=== PATIENT | female | born 1970 | race African-American/Black ===

== ENCOUNTER 2016-09-11 08:12 | Inpatient (IN) | payer OTHER ==
[~2016-09-11] VITALS: Ht 175.3 cm; Wt 74.8 kg
[2016-09-11] MEDS ORDERED: IV NS 0.9% 1,000 ML ONE (08:40)
[2016-09-11] MEDS ORDERED: IV SET PRIMARY PUMP SET 1 EA INFUS.SET MC ONE ×2 (08:40→15:11)
[2016-09-11] MEDS ORDERED: ACETAMINOPHEN ES 500 MG TABLET ONE (08:40)
[2016-09-11] MEDS ORDERED: IV NS 0.9% 1,000 ML BAG IV ONE (09:00)
[2016-09-11] MEDS ORDERED: ACETAMINOPHEN ES 500 MG TABLET PO ONE (09:00)
[2016-09-11 09:26] LABS: CALCIUM, SERUM 7.9 mg/dL (8.5-10.1); CREATININE 0.9 mg/dL (0.6-1.3); POTASSIUM 3.7 mmol/L (3.5-5.1)
[2016-09-11 09:35] LABS: INR 0.95 (0.87-1.13); PROTHROMBIN TIME 10.3 SECS (9.5-12.7)
[2016-09-11 10:04] LABS: BASOPHILS # (AUTO) 0.3 /CMM (0.0-0.2); BASOPHILS % (AUTO) 4.1 % (0.0-2.0); DIFF TOTAL % 100 %; EOSINOPHILS # (AUTO) 0.1 /CMM (0.0-0.7); EOSINOPHILS % (AUTO) 1.6 % (0.0-6.0); LYMPHOCYTES # (AUTO) 2.1 /CMM (0.8-4.8); LYMPHOCYTES % (AUTO) 26.1 % (20.0-44.0); MEAN CORPUSCULAR HEMOGLOBIN 27 PG (26.0-33.0); MEAN CORPUSCULAR HGB CONC 32 g/dl (31.0-36.0); MEAN CORPUSCULAR VOLUME 86 fL (82-100); MONOCYTES # (AUTO) 0.8 /CMM (0.1-1.30); MONOCYTES % (AUTO) 9.4 % (2.0-12.0); NEUTROPHILS # (AUTO) 4.7 /CMM (1.8-8.9); NEUTROPHILS % (AUTO) 58.8 % (43.0-81.0); PLATELET COUNT (AUTO) 459 /CMM (150-450); RED BLOOD CELL COUNT(AUTO) 2.02 MIL/uL (4.0-5.2)
[2016-09-11 10:14] LABS: HEMATOCRIT 17 % (33-45); HEMOGLOBIN 5.5 g/dL (11.5-14.8)
[2016-09-11] MEDS ORDERED: BIOT10004 PO (10:30)
[2016-09-11] MEDS ORDERED: METOCLOPRAMIDE HCL 10 MG/2 ML VIAL IV ONE (10:30)
[2016-09-11] MEDS ORDERED: diphenhydrAMINE HCL 50 MG/ML VIAL IV ONE (10:30)
[2016-09-11] MEDS ORDERED: MULT-24 PO (10:30)
[2016-09-11] MEDS ORDERED: ASCO500T9 PO (10:30)
[2016-09-11] MEDS ORDERED: diphenhydrAMINE HCL 50 MG/ML VIAL ONE (10:37)
[2016-09-11] MEDS ORDERED: METOCLOPRAMIDE HCL 10 MG/2 ML VIAL ONE (10:38)
[2016-09-11 11:01] LABS: BAND % (MANUAL) 1 % (0.0-5.0); LYMPHOCYTES % (MANUAL) 37 % (16-48); PLATELET ESTIMATE INCREASED
[2016-09-11 11:02] LABS: ANISOCYTOSIS 1+; HYPOCHROMASIA 1+; POLYCHROMASIA 1+
[2016-09-11] MEDS ORDERED: IV NS 0.9% 250 ML IV ONE ×2 (12:53→15:12)
[2016-09-11] MEDS ORDERED: BLOOD IV SET 1 EA INFUS.SET MC ONE ×2 (12:53→15:12)
[2016-09-11] MEDS ORDERED: Z GUARD REMEDY 2 OZ OINT TP PRN (14:00)
[2016-09-11] MEDS ORDERED: ZOLPIDEM TARTRATE 5 MG TABLET PO PRN (14:00)
[2016-09-11] MEDS ORDERED: MAG HYDROX/AL HYDROX/SIMETH 30 ML UDC PO PRN (14:00)
[2016-09-11] MEDS ORDERED: ONDANSETRON HCL/PF 4 MG/2 ML VIAL IVP PRN (14:00)
[2016-09-11] MEDS ORDERED: MAGNESIUM HYDROXIDE 30 ML UDC PO PRN (14:00)
[2016-09-11 14:45] VITALS: BP 137/76
[2016-09-11] MEDS: IV NS 0.9% 1,000 ML IV PRN (15:19)
[2016-09-11] MEDS: HYDROCODONE/APAP 5/325MG 1 EACH TABLET PO PRN (15:19)
[2016-09-11 15:48] VITALS: BP 134/82
[2016-09-11 16:10] VITALS: BP_SYST 126; BP_SYST 127; BP_DIAS 71
[2016-09-11 17:21] VITALS: BP 126/70
[2016-09-11 17:53] VITALS: BP 127/74
[2016-09-11 20:00] VITALS: BP 134/54
[2016-09-12] VITALS (9 sets, daily range): BP systolic 129–157; BP diastolic 71–90
[2016-09-12] MEDS: HYDROCODONE/APAP 5/325MG 1 EACH TABLET PO PRN ×2 (00:24→11:25)
[2016-09-12 07:29] LABS: BASOPHILS % (AUTO) 0.7 % (0.0-2.0); DIFF TOTAL % 100 %; EOSINOPHILS # (AUTO) 0.2 /CMM (0.0-0.7); EOSINOPHILS % (AUTO) 3.4 % (0.0-6.0); LYMPHOCYTES # (AUTO) 1.6 /CMM (0.8-4.8); LYMPHOCYTES % (AUTO) 32.3 % (20.0-44.0); MEAN CORPUSCULAR HEMOGLOBIN 28 PG (26.0-33.0); MEAN CORPUSCULAR HGB CONC 33 g/dl (31.0-36.0); MEAN CORPUSCULAR VOLUME 85 fL (82-100); MONOCYTES # (AUTO) 0.5 /CMM (0.1-1.30); MONOCYTES % (AUTO) 9.4 % (2.0-12.0); NEUTROPHILS # (AUTO) 2.7 /CMM (1.8-8.9); NEUTROPHILS % (AUTO) 54.2 % (43.0-81.0); PLATELET COUNT (AUTO) 376 /CMM (150-450); WHITE BLOOD COUNT (AUTO) 5.1 K/uL (4.3-11.0)
[2016-09-12 07:37] LABS: HEMATOCRIT 19 % (33-45); HEMOGLOBIN 6.4 g/dL (11.5-14.8)
[2016-09-12 07:41] LABS: CALCIUM, SERUM 7.8 mg/dL (8.5-10.1); CREATININE 0.8 mg/dL (0.6-1.3); PHOSPHORUS 3.5 mg/dL (2.5-4.9); POTASSIUM 3.5 mmol/L (3.5-5.1)
[2016-09-12] MEDS: PANTOPRAZOLE 40 MG TABLET.DR PO SCH (09:05)
[2016-09-12 10:03] LABS: ANISOCYTOSIS 2+; EOSINOPHILS % (MANUAL) 2 % (0-4); LYMPHOCYTES % (MANUAL) 33 % (16-48); PLATELET ESTIMATE ADEQUATE
[2016-09-12] MEDS ORDERED: IV NS 0.9% 250 ML IV ONE (10:48)
[2016-09-12] MEDS ORDERED: BLOOD IV SET 1 EA INFUS.SET MC ONE (10:49)
[2016-09-13] VITALS (12 sets, daily range): BP systolic 121–155; BP diastolic 52–95
[2016-09-13] MEDS: IV NS 0.9% 1,000 ML IV PRN (02:11)
[2016-09-13] MEDS: ACETAMINOPHEN 325 MG TABLET PO PRN ×2 (04:21→08:59)
[2016-09-13 07:23] LABS: BASOPHILS % (AUTO) 0.3 % (0.0-2.0); DIFF TOTAL % 100 %; EOSINOPHILS # (AUTO) 0.2 /CMM (0.0-0.7); HEMATOCRIT 27 % (33-45); HEMOGLOBIN 8.9 g/dL (11.5-14.8); LYMPHOCYTES # (AUTO) 1.3 /CMM (0.8-4.8); LYMPHOCYTES % (AUTO) 20.3 % (20.0-44.0); MEAN CORPUSCULAR HEMOGLOBIN 28 PG (26.0-33.0); MEAN CORPUSCULAR HGB CONC 33 g/dl (31.0-36.0); MEAN CORPUSCULAR VOLUME 85 fL (82-100); MONOCYTES # (AUTO) 0.5 /CMM (0.1-1.30); MONOCYTES % (AUTO) 7.6 % (2.0-12.0); NEUTROPHILS # (AUTO) 4.4 /CMM (1.8-8.9); NEUTROPHILS % (AUTO) 68.8 % (43.0-81.0); PLATELET COUNT (AUTO) 382 /CMM (150-450); WHITE BLOOD COUNT (AUTO) 6.4 K/uL (4.3-11.0)
[2016-09-13] MEDS: PANTOPRAZOLE 40 MG TABLET.DR PO SCH (07:47)
[2016-09-13] MEDS ORDERED: diphenhydrAMINE HCL ELIX 25 MG/10 ML UDC PO PRN (14:30)
[2016-09-13] MEDS ORDERED: BLOOD IV SET 1 EA INFUS.SET MC ONE ×2 (17:31→20:02)
[2016-09-13] MEDS ORDERED: IV NS 0.9% 250 ML IV ONE (17:32)
[2016-09-13] MEDS ORDERED: diphenhydrAMINE HCL 25 MG CAPSULE ONE (19:38)
[2016-09-13] MEDS: HYDROCODONE/APAP 5/325MG 1 EACH TABLET PO PRN (23:04)
[2016-09-14 00:10] VITALS: BP 137/70
[2016-09-14 01:10] VITALS: BP 149/82
[2016-09-14 01:55] VITALS: BP 137/77
[2016-09-14 04:00] VITALS: BP 167/81
[2016-09-14 06:19] VITALS: BP 167/87
[2016-09-14 08:00] VITALS: BP 141/87
[2016-09-14 09:17] LABS: BASOPHILS % (AUTO) 0.1 % (0.0-2.0); DIFF TOTAL % 100 %; EOSINOPHILS # (AUTO) 0.2 /CMM (0.0-0.7); EOSINOPHILS % (AUTO) 2.7 % (0.0-6.0); HEMATOCRIT 35 % (33-45); HEMOGLOBIN 11.5 g/dL (11.5-14.8); LYMPHOCYTES # (AUTO) 1.3 /CMM (0.8-4.8); LYMPHOCYTES % (AUTO) 18.6 % (20.0-44.0); MEAN CORPUSCULAR HEMOGLOBIN 28 PG (26.0-33.0); MEAN CORPUSCULAR HGB CONC 33 g/dl (31.0-36.0); MEAN CORPUSCULAR VOLUME 85 fL (82-100); MONOCYTES # (AUTO) 0.4 /CMM (0.1-1.30); MONOCYTES % (AUTO) 5.7 % (2.0-12.0); NEUTROPHILS # (AUTO) 5.1 /CMM (1.8-8.9); NEUTROPHILS % (AUTO) 72.9 % (43.0-81.0); PLATELET COUNT (AUTO) 400 /CMM (150-450)
[2016-09-14 09:36] LABS: CALCIUM, SERUM 8.3 mg/dL (8.5-10.1); CREATININE 0.9 mg/dL (0.6-1.3); POTASSIUM 3.8 mmol/L (3.5-5.1)
[2016-09-14] MEDS: PANTOPRAZOLE 40 MG TABLET.DR PO SCH (09:44)
== END 2016-09-14 17:00 | disposition home or self-care (01) | DRG 532 ==
LOC: ER 08:13 → MEDSG1 13:52
PROVIDERS: ADMIT Internal Medicine; ATTEND Internal Medicine
PROC: 30233N1 Transfusion of Nonautologous Red Blood Cells into Peripheral Vein, Percutaneous Approach (ICD-10-PCS; principal; 2016-09-11)
DX: N92.0 Excessive and frequent menstruation with regular cycle (principal); D62 Acute posthemorrhagic anemia; I10 Essential (primary) hypertension; Z86.73 Personal history of transient ischemic attack (TIA), and cerebral infarction without residual deficits; M72.2 Plantar fascial fibromatosis
CPT/HCPCS: 36415; 80048-TC; 80061-TC; 83735-TC; 84100-TC; 84703-TC; 85025-TC; 85730-TC; 86850-TC; 86921-TC; 87081-TC; A4606; J1200; J2765; J7030; J7050; P9016-BL; Q0163; Z7610

== ENCOUNTER 2016-10-04 19:43 | Inpatient (IN) | payer OTHER ==
[~2016-10-04] VITALS: Ht 175.3 cm; Wt 72.6 kg
[~2016-10-04 19:43] MED LIST: ASCO500T9 PO; BIOT10004 PO; MULT-24 PO
[2016-10-04] MEDS ORDERED: IV NS 0.9% 500 ML BAG IV ONE (20:30)
[2016-10-04] MEDS ORDERED: IV SET PRIMARY 1 EA INFUS.SET MC ONE (20:30)
[2016-10-04] MEDS ORDERED: IV NS 0.9% 500 ML IV ONE (20:30)
[2016-10-04 20:55] LABS: BASOPHILS % (AUTO) 0.3 % (0.0-2.0); DIFF TOTAL % 100 %; EOSINOPHILS % (AUTO) 0.4 % (0.0-6.0); LYMPHOCYTES # (AUTO) 1.4 /CMM (0.8-4.8); LYMPHOCYTES % (AUTO) 11.5 % (20.0-44.0); MEAN CORPUSCULAR HEMOGLOBIN 28 PG (26.0-33.0); MEAN CORPUSCULAR HGB CONC 33 g/dl (31.0-36.0); MEAN CORPUSCULAR VOLUME 86 fL (82-100); MONOCYTES # (AUTO) 0.6 /CMM (0.1-1.30); MONOCYTES % (AUTO) 4.5 % (2.0-12.0); NEUTROPHILS # (AUTO) 10.2 /CMM (1.8-8.9); NEUTROPHILS % (AUTO) 83.3 % (43.0-81.0); PLATELET COUNT (AUTO) 303 /CMM (150-450); RED BLOOD CELL COUNT(AUTO) 2.22 MIL/uL (4.0-5.2); WHITE BLOOD COUNT (AUTO) 12.2 K/uL (4.3-11.0)
[2016-10-04 20:58] LABS: HEMOGLOBIN 6.3 g/dL (11.5-14.8)
[2016-10-04 20:59] LABS: HEMATOCRIT 19 % (33-45)
[2016-10-04 21:12] LABS: CALCIUM, SERUM 8.6 mg/dL (8.5-10.1); POTASSIUM 3.8 mmol/L (3.5-5.1)
[2016-10-04 21:50] LABS: ANISOCYTOSIS 1+; BAND % (MANUAL) 1 % (0.0-5.0); LYMPHOCYTES % (MANUAL) 16 % (16-48); MICROCYTOSIS 1+; PLATELET ESTIMATE ADEQU
[2016-10-04] MEDS ORDERED: ONDANSETRON HCL/PF 4 MG/2 ML VIAL IVP ONE (22:30)
[2016-10-04] MEDS ORDERED: MORPHINE SULFATE INJ 2 MG/ML DISP.SYRIN IV ONE (22:30)
[2016-10-04] MEDS ORDERED: MAGNESIUM HYDROXIDE 30 ML UDC PO PRN (23:00)
[2016-10-04] MEDS ORDERED: ZOLPIDEM TARTRATE 5 MG TABLET PO PRN (23:00)
[2016-10-04] MEDS ORDERED: MAG HYDROX/AL HYDROX/SIMETH 30 ML UDC PO PRN (23:00)
[2016-10-04] MEDS ORDERED: Z GUARD REMEDY 2 OZ OINT TP PRN (23:00)
[2016-10-04] MEDS ORDERED: ONDANSETRON HCL/PF 4 MG/2 ML VIAL IVP PRN (23:00)
[2016-10-04] MEDS ORDERED: ACETAMINOPHEN 325 MG TABLET PO PRN (23:00)
[2016-10-04] MEDS ORDERED: BLOOD IV SET 1 EA INFUS.SET MC ONE (23:27)
[2016-10-04] MEDS ORDERED: IV NS 0.9% 250 ML IV ONE (23:28)
[2016-10-04 23:30] VITALS: BP 122/74
[2016-10-04 23:45] VITALS: BP 122/74
[2016-10-05] VITALS (25 sets, daily range): BP systolic 102–158; BP diastolic 50–93
[2016-10-05 07:52] LABS: BASOPHILS % (AUTO) 0.4 % (0.0-2.0); DIFF TOTAL % 100 %; EOSINOPHILS # (AUTO) 0.2 /CMM (0.0-0.7); EOSINOPHILS % (AUTO) 2.1 % (0.0-6.0); HEMATOCRIT 22 % (33-45); HEMOGLOBIN 7.1 g/dL (11.5-14.8); LYMPHOCYTES # (AUTO) 1.5 /CMM (0.8-4.8); LYMPHOCYTES % (AUTO) 18.7 % (20.0-44.0); MEAN CORPUSCULAR HEMOGLOBIN 28 PG (26.0-33.0); MEAN CORPUSCULAR HGB CONC 33 g/dl (31.0-36.0); MEAN CORPUSCULAR VOLUME 85 fL (82-100); MONOCYTES # (AUTO) 0.6 /CMM (0.1-1.30); MONOCYTES % (AUTO) 7.9 % (2.0-12.0); NEUTROPHILS # (AUTO) 5.8 /CMM (1.8-8.9); NEUTROPHILS % (AUTO) 70.9 % (43.0-81.0); PLATELET COUNT (AUTO) 241 /CMM (150-450); RED BLOOD CELL COUNT(AUTO) 2.55 MIL/uL (4.0-5.2); WHITE BLOOD COUNT (AUTO) 8.1 K/uL (4.3-11.0)
[2016-10-05 08:17] LABS: CALCIUM, SERUM 7.7 mg/dL (8.5-10.1); CREATININE 0.8 mg/dL (0.6-1.3); PHOSPHORUS 3.1 mg/dL (2.5-4.9); POTASSIUM 3.9 mmol/L (3.5-5.1)
[2016-10-05] MEDS: MULTIVITAMINS,THERAPEUTIC 1 UDTAB TABLET PO SCH (08:52)
[2016-10-05] MEDS: ASCORBIC ACID 500 MG TABLET PO SCH (08:52)
[2016-10-05 08:57] LABS: BAND % (MANUAL) 1 % (0.0-5.0); EOSINOPHILS % (MANUAL) 5 % (0-4); LYMPHOCYTES % (MANUAL) 14 % (16-48)
[2016-10-05 08:58] LABS: ANISOCYTOSIS 1+; PLATELET ESTIMATE ADEQUATE
[2016-10-05] MEDS ORDERED: Medication Not On Formulary EA (Biotin 1,000 MCG) PO SCH (09:00)
[2016-10-05] MEDS: HYDROCODONE/APAP 5/325MG 1 EACH TABLET PO PRN ×2 (10:02→21:01)
[2016-10-05] MEDS ORDERED: IV SET PRIMARY PUMP SET 1 EA INFUS.SET MC ONE (13:06)
[2016-10-05] MEDS: IV NS 0.9% 1,000 ML IV PRN (13:11)
[2016-10-05] MEDS ORDERED: IV NS 0.9% 250 ML IV ONE ×2 (14:54→19:38)
[2016-10-05] MEDS ORDERED: BLOOD IV SET 1 EA INFUS.SET MC ONE ×2 (14:59→19:38)
[2016-10-05] MEDS: DOCUSATE SODIUM 250 MG CAPSULE PO SCH (16:12)
[2016-10-05] MEDS: ATORVASTATIN 10 MG TABLET PO SCH ×2 (20:57→22:00)
[2016-10-06] VITALS (8 sets, daily range): BP systolic 117–151; BP diastolic 66–86
[2016-10-06] MEDS: IV NS 0.9% 1,000 ML IV PRN (07:11)
[2016-10-06 08:19] LABS: BASOPHILS % (AUTO) 0.3 % (0.0-2.0); DIFF TOTAL % 100 %; EOSINOPHILS # (AUTO) 0.1 /CMM (0.0-0.7); EOSINOPHILS % (AUTO) 2.1 % (0.0-6.0); HEMATOCRIT 27 % (33-45); HEMOGLOBIN 8.7 g/dL (11.5-14.8); LYMPHOCYTES # (AUTO) 1.8 /CMM (0.8-4.8); LYMPHOCYTES % (AUTO) 25.4 % (20.0-44.0); MEAN CORPUSCULAR HEMOGLOBIN 28 PG (26.0-33.0); MEAN CORPUSCULAR HGB CONC 33 g/dl (31.0-36.0); MEAN CORPUSCULAR VOLUME 86 fL (82-100); MONOCYTES # (AUTO) 0.5 /CMM (0.1-1.30); MONOCYTES % (AUTO) 6.9 % (2.0-12.0); NEUTROPHILS # (AUTO) 4.6 /CMM (1.8-8.9); NEUTROPHILS % (AUTO) 65.3 % (43.0-81.0); PLATELET COUNT (AUTO) 251 /CMM (150-450); RED BLOOD CELL COUNT(AUTO) 3.06 MIL/uL (4.0-5.2); WHITE BLOOD COUNT (AUTO) 7.1 K/uL (4.3-11.0)
[2016-10-06] MEDS: ASCORBIC ACID 500 MG TABLET PO SCH (08:24)
[2016-10-06] MEDS: MULTIVITAMINS,THERAPEUTIC 1 UDTAB TABLET PO SCH (08:24)
[2016-10-06] MEDS: DOCUSATE SODIUM 250 MG CAPSULE PO SCH ×2 (08:24→16:46)
[2016-10-06] MEDS: MEGESTROL ACETATE 40 MG TABLET PO SCH (20:08)
[2016-10-06] MEDS: ATORVASTATIN 10 MG TABLET PO SCH (22:00)
[2016-10-07] VITALS: BP 129/77
[2016-10-07 04:00] VITALS: BP 122/66
[2016-10-07 06:45] LABS: BASOPHILS % (AUTO) 0.3 % (0.0-2.0); DIFF TOTAL % 100 %; EOSINOPHILS # (AUTO) 0.1 /CMM (0.0-0.7); EOSINOPHILS % (AUTO) 1.6 % (0.0-6.0); HEMATOCRIT 25 % (33-45); HEMOGLOBIN 8.3 g/dL (11.5-14.8); LYMPHOCYTES # (AUTO) 1.5 /CMM (0.8-4.8); LYMPHOCYTES % (AUTO) 24.2 % (20.0-44.0); MEAN CORPUSCULAR HEMOGLOBIN 29 PG (26.0-33.0); MEAN CORPUSCULAR HGB CONC 33 g/dl (31.0-36.0); MEAN CORPUSCULAR VOLUME 88 fL (82-100); MONOCYTES # (AUTO) 0.5 /CMM (0.1-1.30); NEUTROPHILS # (AUTO) 4.2 /CMM (1.8-8.9); NEUTROPHILS % (AUTO) 65.9 % (43.0-81.0); PLATELET COUNT (AUTO) 325 /CMM (150-450); RED BLOOD CELL COUNT(AUTO) 2.89 MIL/uL (4.0-5.2); WHITE BLOOD COUNT (AUTO) 6.3 K/uL (4.3-11.0)
[2016-10-07 06:58] VITALS: BP 122/73
[2016-10-07 07:10] LABS: CALCIUM, SERUM 8.3 mg/dL (8.5-10.1); CREATININE 0.8 mg/dL (0.6-1.3); POTASSIUM 4.2 mmol/L (3.5-5.1)
[2016-10-07 08:07] VITALS: BP 122/73
[2016-10-07] MEDS: MULTIVITAMINS,THERAPEUTIC 1 UDTAB TABLET PO SCH (08:49)
[2016-10-07] MEDS: DOCUSATE SODIUM 250 MG CAPSULE PO SCH (08:49)
[2016-10-07] MEDS: ASCORBIC ACID 500 MG TABLET PO SCH (08:49)
[2016-10-07] MEDS: MEGESTROL ACETATE 40 MG TABLET PO SCH (08:58)
[2016-10-07] MEDS ORDERED: MEGE40TA PO (09:30)
== END 2016-10-07 11:30 | disposition home or self-care (01) | DRG 532 ==
LOC: ER 19:46 → MED 22:09 → TELE 10-05 00:10 → MED 10-07 11:00
PROVIDERS: ADMIT Family Medicine; ATTEND Family Medicine
PROC: 30233N1 Transfusion of Nonautologous Red Blood Cells into Peripheral Vein, Percutaneous Approach (ICD-10-PCS; principal; 2016-10-05)
DX: N92.0 Excessive and frequent menstruation with regular cycle (principal); I10 Essential (primary) hypertension; D72.829 Elevated white blood cell count, unspecified; Z91.19 Patient's noncompliance with other medical treatment and regimen; Z86.73 Personal history of transient ischemic attack (TIA), and cerebral infarction without residual deficits; J45.909 Unspecified asthma, uncomplicated; D50.0 Iron deficiency anemia secondary to blood loss (chronic); R73.9 Hyperglycemia, unspecified; D72.828 Other elevated white blood cell count; N93.8 Other specified abnormal uterine and vaginal bleeding
CPT/HCPCS: 36415; 80048-TC; 80061-TC; 83735-TC; 84100-TC; 84703-TC; 85025-TC; 86850-TC; 86901; 86921-TC; 87081-TC; A4606; J7030; J7040; J7050; P9016-BL; Z7610

== ENCOUNTER 2016-11-21 23:01 | Inpatient (IN) | payer OTHER ==
[~2016-11-21] VITALS: Ht 175.3 cm; Wt 91.6 kg
[~2016-11-21 23:01] MED LIST changes: +MEGE40TA PO
[2016-11-21] MEDS ORDERED: IV NS 0.9% 1,000 ML BAG IV ONE (23:30)
[2016-11-22] VITALS (15 sets, daily range): BP systolic 111–154; BP diastolic 54–86
[2016-11-22] MEDS ORDERED: IV NS 0.9% 1,000 ML ONE (00:17)
[2016-11-22] MEDS ORDERED: IV SET PRIMARY 1 EA INFUS.SET MC ONE (00:17)
[2016-11-22 00:40] LABS: BASOPHILS % (AUTO) 0.4 % (0.0-2.0); DIFF TOTAL % 100 %; EOSINOPHILS # (AUTO) 0.1 /CMM (0.0-0.7); EOSINOPHILS % (AUTO) 1.7 % (0.0-6.0); HEMATOCRIT 21 % (33-45); LYMPHOCYTES # (AUTO) 1.9 /CMM (0.8-4.8); MEAN CORPUSCULAR HEMOGLOBIN 27 PG (26.0-33.0); MEAN CORPUSCULAR HGB CONC 31 g/dl (31.0-36.0); MEAN CORPUSCULAR VOLUME 88 fL (82-100); MONOCYTES # (AUTO) 0.4 /CMM (0.1-1.30); MONOCYTES % (AUTO) 4.5 % (2.0-12.0); NEUTROPHILS # (AUTO) 6.1 /CMM (1.8-8.9); NEUTROPHILS % (AUTO) 71.4 % (43.0-81.0); PLATELET COUNT (AUTO) 328 /CMM (150-450); RED BLOOD CELL COUNT(AUTO) 2.37 MIL/uL (4.0-5.2); WHITE BLOOD COUNT (AUTO) 8.5 K/uL (4.3-11.0)
[2016-11-22 00:46] LABS: CALCIUM, SERUM 8.9 mg/dL (8.5-10.1); CREATININE 1.2 mg/dL (0.6-1.3); HEMOGLOBIN 6.5 g/dL (11.5-14.8); POTASSIUM 3.5 mmol/L (3.5-5.1)
[2016-11-22 00:51] LABS: BILIRUBIN,TOTAL 0.1 mg/dL (0.2-1.0); TOTAL PROTEIN, SERUM 6.7 g/dL (6.4-8.2)
[2016-11-22 00:52] LABS: INDIRECT BILIRUBIN 0.1 mg/dL (0.0-1.1); INR 0.92 (0.87-1.13); PROTHROMBIN TIME 9.9 SECS (9.5-12.7)
[2016-11-22] MEDS ORDERED: HYDROCODONE/APAP 5/325MG 1 EACH TABLET PO PRN (03:30)
[2016-11-22] MEDS ORDERED: MAGNESIUM HYDROXIDE 30 ML UDC PO PRN (03:30)
[2016-11-22] MEDS ORDERED: ZOLPIDEM TARTRATE 5 MG TABLET PO PRN (03:30)
[2016-11-22] MEDS ORDERED: ONDANSETRON HCL/PF 4 MG/2 ML VIAL IVP PRN (03:30)
[2016-11-22 04:06] LABS: ANISOCYTOSIS 3+; HYPOCHROMASIA 3+; LYMPHOCYTES % (MANUAL) 15 % (16-48); PLATELET ESTIMATE ADEQUATE
[2016-11-22] MEDS ORDERED: ONDANSETRON HCL/PF 4 MG/2 ML VIAL ONE (06:21)
[2016-11-22] MEDS ORDERED: BLOOD IV SET 1 EA INFUS.SET MC ONE ×2 (07:01→13:55)
[2016-11-22] MEDS ORDERED: IV NS 0.9% 250 ML IV ONE (07:01)
[2016-11-22] MEDS ORDERED: PANTOPRAZOLE 40 MG TABLET.DR PO SCH (07:30)
[2016-11-22] MEDS: MULTIVITAMINS,THERAPEUTIC 1 UDTAB TABLET PO SCH (08:17)
[2016-11-22] MEDS: ASCORBIC ACID 500 MG TABLET PO SCH (08:17)
[2016-11-22] MEDS ORDERED: Medication Not On Formulary EA (Biotin 1,000 MCG) PO SCH (09:00)
[2016-11-22] MEDS ORDERED: MEGESTROL ACETATE 40 MG TABLET PO SCH (09:00)
[2016-11-22] MEDS ORDERED: IRON ASPGLY&PS/C/B12/FA/CA/SUC 1 CAP CAPSULE PO SCH (17:00)
[2016-11-22] MEDS: LACTOBACILLUS RHAMNOSUS GG 1 EACH CAP.SPRINK PO SCH (17:07)
[2016-11-22] MEDS: SLOW FE 1 TAB PO SCH (17:07)
[2016-11-22] MEDS ORDERED: MAG HYDROX/AL HYDROX/SIMETH 30 ML UDC PO PRN (17:30)
[2016-11-23] VITALS (10 sets, daily range): BP systolic 129–147; BP diastolic 68–93
[2016-11-23 06:53] LABS: BASOPHILS % (AUTO) 0.5 % (0.0-2.0); DIFF TOTAL % 100 %; EOSINOPHILS # (AUTO) 0.1 /CMM (0.0-0.7); EOSINOPHILS % (AUTO) 2.5 % (0.0-6.0); HEMATOCRIT 25 % (33-45); HEMOGLOBIN 8.2 g/dL (11.5-14.8); LYMPHOCYTES # (AUTO) 1.4 /CMM (0.8-4.8); LYMPHOCYTES % (AUTO) 29.3 % (20.0-44.0); MEAN CORPUSCULAR HEMOGLOBIN 28 PG (26.0-33.0); MEAN CORPUSCULAR HGB CONC 33 g/dl (31.0-36.0); MEAN CORPUSCULAR VOLUME 86 fL (82-100); MONOCYTES # (AUTO) 0.4 /CMM (0.1-1.30); MONOCYTES % (AUTO) 7.8 % (2.0-12.0); NEUTROPHILS # (AUTO) 2.9 /CMM (1.8-8.9); NEUTROPHILS % (AUTO) 59.9 % (43.0-81.0); PLATELET COUNT (AUTO) 290 /CMM (150-450); RED BLOOD CELL COUNT(AUTO) 2.92 MIL/uL (4.0-5.2); WHITE BLOOD COUNT (AUTO) 4.9 K/uL (4.3-11.0)
[2016-11-23 07:06] LABS: CALCIUM, SERUM 8.3 mg/dL (8.5-10.1); CREATININE 0.8 mg/dL (0.6-1.3); PHOSPHORUS 3.2 mg/dL (2.5-4.9); POTASSIUM 3.9 mmol/L (3.5-5.1)
[2016-11-23] MEDS: ACETAMINOPHEN 325 MG TABLET PO PRN ×2 (08:28→14:20)
[2016-11-23] MEDS: MULTIVITAMINS,THERAPEUTIC 1 UDTAB TABLET PO SCH (08:28)
[2016-11-23] MEDS: ASCORBIC ACID 500 MG TABLET PO SCH (08:28)
[2016-11-23] MEDS: SLOW FE 1 TAB PO SCH (08:28)
[2016-11-23] MEDS: LACTOBACILLUS RHAMNOSUS GG 1 EACH CAP.SPRINK PO SCH (08:28)
[2016-11-23] MEDS ORDERED: BLOOD IV SET 1 EA INFUS.SET MC ONE (12:55)
[2016-11-23] MEDS ORDERED: IV NS 0.9% 250 ML IV ONE (12:55)
[2016-11-23] MEDS ORDERED: LACTOBACILLUS RHAMNOSUS GG 1 EACH CAP.SPRINK PO SCH (17:00)
== END 2016-11-23 17:41 | disposition home or self-care (01) | DRG 532 ==
LOC: ER 23:02 → MED 11-22 01:41
PROVIDERS: ADMIT Nurse Practitioner Acute Care; ATTEND Internal Medicine
PROC: 30233N1 Transfusion of Nonautologous Red Blood Cells into Peripheral Vein, Percutaneous Approach (ICD-10-PCS; principal; 2016-11-22)
DX: D25.9 Leiomyoma of uterus, unspecified (principal); D62 Acute posthemorrhagic anemia; I10 Essential (primary) hypertension; Z86.73 Personal history of transient ischemic attack (TIA), and cerebral infarction without residual deficits; N92.0 Excessive and frequent menstruation with regular cycle; J45.909 Unspecified asthma, uncomplicated; R73.9 Hyperglycemia, unspecified
CPT/HCPCS: 36415; 80048-TC; 80061-TC; 80076-TC; 83735-TC; 84100-TC; 84703-TC; 85025-TC; 85730-TC; 86850-TC; 86921-TC; 87081-TC; A4606; J2405; J7030; J7050; P9016-BL; Z7610

== ENCOUNTER 2016-12-09 23:10 | Emergency (ER) | payer OTHER ==
[~2016-12-09] VITALS: Ht 175.3 cm; Wt 85.3 kg
--- NOTE | 2016-12-10 00:20 | NUR ---
To bed 3 a 46 yo female bibself with c/o generalized body weakness and dizziness for a day now. Patient is aaox4, ambulatory. No s/s of acute distress. Breathing even and unlabored. Denies nausea or headache. Skin warm and dry to touch. Gowned patient. Placed on drug abuse worker. Awaiting for er md diaz.
--- NOTE | 2016-12-10 01:15 | NUR ---
environmental laboratory technician at bedside for eval.
--- NOTE | 2016-12-10 01:15 | NUR ---
started a saline lock g20 on the left wrist.
[2016-12-10 01:28] LABS: BASOPHILS % (AUTO) 0.7 % (0.0-2.0); EOSINOPHILS # (AUTO) 0.2 /CMM (0.0-0.7); EOSINOPHILS % (AUTO) 2.7 % (0.0-6.0); HEMATOCRIT 26 % (33-45); HEMOGLOBIN 8.3 g/dL (11.5-14.8); LYMPHOCYTES # (AUTO) 1.9 /CMM (0.8-4.8); LYMPHOCYTES % (AUTO) 28.9 % (20.0-44.0); MEAN CORPUSCULAR HEMOGLOBIN 26 PG (26.0-33.0); MEAN CORPUSCULAR HGB CONC 32 g/dl (31.0-36.0); MEAN CORPUSCULAR VOLUME 81 fL (82-100); MONOCYTES # (AUTO) 0.6 /CMM (0.1-1.30); MONOCYTES % (AUTO) 8.9 % (2.0-12.0); NEUTROPHILS # (AUTO) 3.8 /CMM (1.8-8.9); NEUTROPHILS % (AUTO) 58.8 % (43.0-81.0); PLATELET COUNT (AUTO) 582 /CMM (150-450); RDW COEFFICIENT OF VARIATION 20.3 (11.5-15.0); WHITE BLOOD COUNT (AUTO) 6.4 K/uL (4.3-11.0)
[2016-12-10 01:37] LABS: CALCIUM, SERUM 9.2 mg/dL (8.5-10.1); CREATININE 0.8 mg/dL (0.6-1.3); POTASSIUM 4.4 mmol/L (3.5-5.1)
[2016-12-10 01:42] LABS: INR 0.94 (0.87-1.13)
[2016-12-10 01:45] LABS: ALBUMIN 3.6 g/dL (3.4-5.0); BILIRUBIN,TOTAL 0.2 mg/dL (0.2-1.0); TOTAL PROTEIN, SERUM 7.2 g/dL (6.4-8.2)
--- NOTE | 2016-12-10 02:00 | NUR ---
patient to ct.
[2016-12-10 02:11] LABS: APPEARANCE,URINE CLOUDY (CLEAR); BILIRUBIN,URINE NEGATIVE (NEGATIVE); BLOOD, URINE 3+ Ery/uL (NEGATIVE); COLOR,URINE BROWN (YELLOW); KETONES,URINE TRACE (NEGATIVE); LEUKOCYTE ESTERASE ,URINE NEGATIVE (NEGATIVE); NITRITE, URINE NEGATIVE (NEGATIVE); PH,URINE 7.5 (5.0-8.0); PROTEIN,URINE 2+ mg/dl (NEGATIVE); UGLUCOSE NEGATIVE (NEGATIVE); UROBILINOGEN,URINE 0.2 EU/dL (0.2)
[2016-12-10 02:22] LABS: ADD URINE CULTURE NO; BACTERIA,URINE None seen /HPF (None Seen); RBC,URINE TOO NUMEROUS TO COUN /HPF (0-2); SQUAMOUS EPITHELIAL CELL,UR Rare /HPF (None Seen)
--- NOTE | 2016-12-10 03:51 | NUR ---
ear irrigation done on the left ear, bola well.
[2016-12-10 03:52] VITALS: BP 135/76
--- NOTE | 2016-12-10 03:58 | NUR ---
IV removed. Catheter intact and site benign. Pressure and 4x4 applied to site. No bleeding noted. Patient discharged to home in stable condition. Written and verbal after care instructions given. Patient verbalizes understanding of instruction. Patient is ambulatory with steady gait.
== END 2016-12-10 04:00 | disposition home or self-care (01) ==
LOC: ER 23:17
DX: R53.1 Weakness (principal); K59.00 Constipation, unspecified; D64.9 Anemia, unspecified; R42 Dizziness and giddiness; Z91.02 Food additives allergy status; Z88.5 Allergy status to narcotic agent; F10.20 Alcohol dependence, uncomplicated; I10 Essential (primary) hypertension; Z86.73 Personal history of transient ischemic attack (TIA), and cerebral infarction without residual deficits; N92.0 Excessive and frequent menstruation with regular cycle; D25.9 Leiomyoma of uterus, unspecified
CPT/HCPCS: 36415; 71010-TC; 80048-TC; 80076-TC; 81000-TC; 85025-TC; 85730-TC; 86850-TC; A4606; Z7610

== ENCOUNTER 2017-08-06 06:18 | Inpatient (IN) | payer OTHER ==
[~2017-08-06] VITALS: Ht 175.3 cm; Wt 88.5 kg
[2017-08-06] VITALS (18 sets, daily range): BP systolic 114–139; BP diastolic 58–85
[2017-08-06 07:47] LABS: BASOPHILS % (AUTO) 0.3 % (0.0-2.0); EOSINOPHILS # (AUTO) 0.1 /CMM (0.0-0.7); LYMPHOCYTES # (AUTO) 1.2 /CMM (0.8-4.8); LYMPHOCYTES % (AUTO) 20.6 % (20.0-44.0); MEAN CORPUSCULAR HEMOGLOBIN 30 PG (26.0-33.0); MEAN CORPUSCULAR HGB CONC 33 g/dl (31.0-36.0); MEAN CORPUSCULAR VOLUME 92 fL (82-100); MONOCYTES # (AUTO) 0.5 /CMM (0.1-1.30); MONOCYTES % (AUTO) 7.8 % (2.0-12.0); NEUTROPHILS # (AUTO) 4.2 /CMM (1.8-8.9); NEUTROPHILS % (AUTO) 70.3 % (43.0-81.0); PLATELET COUNT (AUTO) 383 /CMM (150-450); RDW COEFFICIENT OF VARIATION 14.5 (11.5-15.0); WHITE BLOOD COUNT (AUTO) 5.9 K/uL (4.3-11.0)
[2017-08-06 07:50] LABS: RED BLOOD CELL COUNT(AUTO) 1.64 MIL/uL (4.0-5.2)
[2017-08-06 07:51] LABS: HEMATOCRIT 15 % (33-45); HEMOGLOBIN 4.9 g/dL (11.5-14.8)
[2017-08-06 07:53] LABS: CALCIUM, SERUM 8.7 mg/dL (8.5-10.1); CREATININE 0.9 mg/dL (0.6-1.3); POTASSIUM 3.6 mmol/L (3.5-5.1)
[2017-08-06 08:04] LABS: INR 0.94 (0.87-1.13); PROTHROMBIN TIME 9.8 SECS (9.5-12.7)
[2017-08-06] MEDS ORDERED: DIPH25CA6 PO (08:18)
[2017-08-06] MEDS ORDERED: ALBU18HF2 IH (08:18)
[2017-08-06] MEDS ORDERED: ERGO50003 PO (08:18)
[2017-08-06] MEDS ORDERED: CYAN500T4 PO (08:18)
[2017-08-06] MEDS ORDERED: MEGE400O PO (08:18)
[2017-08-06 08:59] LABS: EOSINOPHILS % (MANUAL) 1 % (0-4); LYMPHOCYTES % (MANUAL) 33 % (16-48); MONOCYTES % (MANUAL) 3 % (0-11.0); NEUTROPHILS % (MANUAL) 63 (42-76)
[2017-08-06] MEDS ORDERED: MAGNESIUM HYDROXIDE 30 ML UDC PO PRN (10:00)
[2017-08-06] MEDS ORDERED: ONDANSETRON HCL/PF 4 MG/2 ML VIAL IVP PRN (10:00)
[2017-08-06] MEDS ORDERED: ZOLPIDEM TARTRATE 5 MG TABLET PO PRN (10:00)
[2017-08-06] MEDS ORDERED: ALBUTEROL SULFATE 8 GM HFA.AER.AD IH PRN (10:00)
[2017-08-06] MEDS ORDERED: Z GUARD REMEDY 2 OZ OINT TP PRN (10:00)
[2017-08-06] MEDS ORDERED: HYDROCODONE/APAP 5/325MG 1 EACH TABLET PO PRN (10:00)
[2017-08-06] MEDS ORDERED: ACETAMINOPHEN 325 MG TABLET PO PRN (10:00)
[2017-08-06] MEDS ORDERED: MAG HYDROX/AL HYDROX/SIMETH 30 ML UDC PO PRN (10:00)
[2017-08-06] MEDS: IV NS 0.9% 1,000 ML IV PRN (11:06)
[2017-08-06] MEDS ORDERED: Biotin 1,000 MCG PO SCH (11:30)
[2017-08-06] MEDS ORDERED: ALBUTEROL FS 2.5 MG/3 ML VIAL.NEB NEB PRN (11:30)
[2017-08-06] MEDS ORDERED: CYANOCOBALAMIN 500 MCG TABLET PO ONE (12:00)
[2017-08-06] MEDS ORDERED: MEGESTROL ACETATE SUSP 400 MG/10 ML UDC PO ONE (12:00)
[2017-08-06] MEDS ORDERED: ASCORBIC ACID 500 MG TABLET PO ONE (12:00)
[2017-08-06] MEDS ORDERED: MULTIVITAMINS,THERAGRAN 1 UDTAB TABLET PO ONE (12:00)
[2017-08-06] MEDS: diphenhydrAMINE HCL 25 MG CAPSULE PO PRN (13:54)
[2017-08-07] VITALS (7 sets, daily range): BP systolic 121–149; BP diastolic 67–95
[2017-08-07] MEDS: IV NS 0.9% 1,000 ML IV PRN ×2 (01:52→18:12)
[2017-08-07 06:42] LABS: BASOPHILS % (AUTO) 0.3 % (0.0-2.0); EOSINOPHILS # (AUTO) 0.2 /CMM (0.0-0.7); EOSINOPHILS % (AUTO) 2.6 % (0.0-6.0); HEMATOCRIT 22 % (33-45); HEMOGLOBIN 7.1 g/dL (11.5-14.8); LYMPHOCYTES # (AUTO) 1.7 /CMM (0.8-4.8); LYMPHOCYTES % (AUTO) 26.5 % (20.0-44.0); MEAN CORPUSCULAR HEMOGLOBIN 29 PG (26.0-33.0); MEAN CORPUSCULAR HGB CONC 33 g/dl (31.0-36.0); MEAN CORPUSCULAR VOLUME 89 fL (82-100); MONOCYTES # (AUTO) 0.4 /CMM (0.1-1.30); MONOCYTES % (AUTO) 6.5 % (2.0-12.0); NEUTROPHILS % (AUTO) 64.1 % (43.0-81.0); PLATELET COUNT (AUTO) 385 /CMM (150-450); RDW COEFFICIENT OF VARIATION 17.5 (11.5-15.0); RED BLOOD CELL COUNT(AUTO) 2.46 MIL/uL (4.0-5.2); WHITE BLOOD COUNT (AUTO) 6.3 K/uL (4.3-11.0)
[2017-08-07 07:17] LABS: BILIRUBIN,TOTAL 0.2 mg/dL (0.2-1.0); CALCIUM, SERUM 8.2 mg/dL (8.5-10.1); CREATININE 0.8 mg/dL (0.6-1.3); MAGNESIUM 2.1 mg/dL (1.8-2.4); PHOSPHORUS 3.7 mg/dL (2.5-4.9); POTASSIUM 3.7 mmol/L (3.5-5.1); TOTAL PROTEIN, SERUM 5.7 g/dL (6.4-8.2)
[2017-08-07] MEDS: ASCORBIC ACID 500 MG TABLET PO SCH (08:58)
[2017-08-07] MEDS: CYANOCOBALAMIN 500 MCG TABLET PO SCH (08:58)
[2017-08-07] MEDS: MULTIVITAMINS,THERAGRAN 1 UDTAB TABLET PO SCH (08:58)
[2017-08-07] MEDS ORDERED: MEGESTROL ACETATE SUSP 400 MG/10 ML UDC PO SCH (09:00)
[2017-08-07] MEDS: MEGESTROL ACETATE 40 MG TABLET PO SCH (11:07)
[2017-08-07] MEDS: diphenhydrAMINE HCL 25 MG CAPSULE PO PRN (14:00)
[2017-08-08 04:00] VITALS: BP 119/76
[2017-08-08] MEDS: IV NS 0.9% 1,000 ML IV PRN (06:21)
[2017-08-08 08:00] VITALS: BP_SYST 140; BP_SYST 149; BP_DIAS 83
[2017-08-08] MEDS: MULTIVITAMINS,THERAGRAN 1 UDTAB TABLET PO SCH (08:58)
[2017-08-08] MEDS: MEGESTROL ACETATE 40 MG TABLET PO SCH (08:58)
[2017-08-08] MEDS: ASCORBIC ACID 500 MG TABLET PO SCH (08:59)
[2017-08-08] MEDS: CYANOCOBALAMIN 500 MCG TABLET PO SCH (08:59)
[2017-08-08] MEDS ORDERED: HYDR-552 PO (12:15)
[2017-08-08] MEDS ORDERED: HYDR-548 PO (12:19)
[2017-08-08] MEDS ORDERED: HYDROCODONE/APAP 5/325MG 1 EACH TABLET PO PRN (12:30)
[2017-08-08 12:37] LABS: HEMOGLOBIN 8.8 g/dL (11.5-14.8)
[2017-08-13] MEDS ORDERED: ERGOCALCIFEROL (VITAMIN D 2) 50,000 UNIT CAPSULE PO SCH (09:00)
== END 2017-08-08 13:41 | disposition home or self-care (01) | DRG 532 ==
LOC: ER 06:23 → TELE1 08:24 → MEDSG1 18:04
PROVIDERS: ADMIT Internal Medicine; ATTEND Internal Medicine
PROC: 30233N1 Transfusion of Nonautologous Red Blood Cells into Peripheral Vein, Percutaneous Approach (ICD-10-PCS; principal; 2017-08-06)
DX: N92.0 Excessive and frequent menstruation with regular cycle (principal); D62 Acute posthemorrhagic anemia; I10 Essential (primary) hypertension; J45.909 Unspecified asthma, uncomplicated; Z86.73 Personal history of transient ischemic attack (TIA), and cerebral infarction without residual deficits
CPT/HCPCS: 36415; 80048-TC; 80053-TC; 80061-TC; 83735-TC; 84100-TC; 85025-TC; 85027-TC; 85730-TC; 86850-TC; 86921-TC; 87081-TC; A4606; J7030; J7050; P9016-BL; Q0163; Z7610

== ENCOUNTER 2017-12-09 01:27 | Emergency (ER) | payer OTHER ==
[~2017-12-09] VITALS: Ht 175.3 cm; Wt 70.3 kg
[~2017-12-09 01:27] MED LIST changes: +ALBU18HF2 IH; +CYAN500T4 PO; +DIPH25CA6 PO; +ERGO500014 PO; +HYDR-548 PO; +MEGE400O PO; -MEGE40TA PO
--- NOTE | 2017-12-09 02:35 | NUR ---
TO BED 16 A 47 YO FEMALE PATIENT BBSELF AND C/O "BEEN TINGLY AND NUMB ON LEFT SIDE FOR 3 DAYS." PATIENT IS AAOX3, VSS, NAD NOTED. SKIN WARM AND DRY. AMBULATORY.
[2017-12-09 03:43] LABS: BASOPHILS % (AUTO) 0.2 % (0.0-2.0); EOSINOPHILS % (AUTO) 0.6 % (0.0-6.0); HEMATOCRIT 28 % (33-45); HEMOGLOBIN 8.4 g/dL (11.5-14.8); LYMPHOCYTES # (AUTO) 0.9 /CMM (0.8-4.8); LYMPHOCYTES % (AUTO) 23.7 % (20.0-44.0); MEAN CORPUSCULAR HGB CONC 30 g/dl (31.0-36.0); MEAN CORPUSCULAR VOLUME 66 fL (82-100); MONOCYTES # (AUTO) 0.4 /CMM (0.1-1.30); MONOCYTES % (AUTO) 9.6 % (2.0-12.0); NEUTROPHILS # (AUTO) 2.6 /CMM (1.8-8.9); NEUTROPHILS % (AUTO) 65.9 % (43.0-81.0); PLATELET COUNT (AUTO) 516 /CMM (150-450); RDW COEFFICIENT OF VARIATION 19.7 (11.5-15.0); RED BLOOD CELL COUNT(AUTO) 4.27 MIL/uL (4.0-5.2)
[2017-12-09 03:53] LABS: CALCIUM, SERUM 9.7 mg/dL (8.5-10.1); CREATININE 1.1 mg/dL (0.6-1.3)
[2017-12-09 04:01] LABS: POTASSIUM 2.6 mmol/L (3.5-5.1)
[2017-12-09] MEDS ORDERED: POTASSIUM CL. PREMIX PERIPHER. 150 ML ONE (04:06)
[2017-12-09] MEDS ORDERED: POTASSIUM CHLORIDE 10 MEQ TABLET.SA ONE (04:06)
[2017-12-09] MEDS ORDERED: POTASSIUM CHLORIDE 20 MEQ TAB.PRT.SR PO ONE ×3 (04:30→06:00)
[2017-12-09] MEDS ORDERED: POTASSIUM CHLORIDE 10 MEQ/50 ML PREMIXED IVPB FOR PERIPHERAL LINE IV ONE (04:30)
[2017-12-09] MEDS ORDERED: IV NS 0.9% 1,000 ML BAG IV ONE (05:30)
--- NOTE | 2017-12-09 05:40 | NUR ---
FIRST BAG OF 10MEQ KCL COMPLETED, NO ADR NOTED. SECOND BAG OF IV KCL STARTED AT THIS TIME.
[2017-12-09 06:10] LABS: CALCIUM, SERUM 9.3 mg/dL (8.5-10.1)
[2017-12-09 06:12] LABS: POTASSIUM 2.6 mmol/L (3.5-5.1)
--- NOTE | 2017-12-09 07:00 | NUR ---
SECOND BAG OF IV KCL COMPLETED AT THIS TIME, VSS. NO ADVERSE CONDITION NOTED. STARTED THE 3RD BAG AT THIS TIME.
--- NOTE | 2017-12-09 07:31 | NUR ---
REPORT GIVEN TO TERI MELO FOR JHOANA.
[2017-12-09 08:08] VITALS: BP 112/80
--- NOTE | 2017-12-09 08:10 | NUR ---
Patient discharged to home in stable condition. Written and verbal after care instructions given. Patient verbalizes understanding of instruction.
== END 2017-12-09 08:11 | disposition home or self-care (01) ==
LOC: ER 01:32
DX: R53.1 Weakness (principal); I10 Essential (primary) hypertension; D64.9 Anemia, unspecified; Z86.73 Personal history of transient ischemic attack (TIA), and cerebral infarction without residual deficits; Z91.013 Allergy to seafood; Z60.2 Problems related to living alone
CPT/HCPCS: 36415; 70450-TC; 80048-TC; 83735-TC; 85025-TC; A4606; J3480; J7040; Z7610

== ENCOUNTER 2018-05-13 04:20 | Inpatient (IN) | payer OTHER ==
[2018-05-13] VITALS (17 sets, daily range): BP systolic 115–147; BP diastolic 62–98
[~2018-05-13] VITALS: Ht 175.3 cm; Wt 84.4 kg
--- NOTE | 2018-05-13 04:40 | NUR ---
PT BIBSELF. PT C/O VAGINAL BLEEDING SINCE 05/02. PT AAOX3. PT C/O PAIN IN LOWER ABDOMEN AND BACK. PT DENIES NVD, NAD NOTED. RESPIRATIONS EVEN AND UNLABORED. IV STARTED ON LEFT AC 20G. IV PATENT AND INTACT, PLACED ON SALINE LOCK. LABS DRAWN, URINE COLLECTED CALLED LAB FOR INVENTORY CONTROL SPECIALIST. PT PLACED ON MONITOR AND GOWNED.
--- NOTE | 2018-05-13 04:43 | NUR ---
DR LINDO AT BEDSIDE
[2018-05-13] MEDS ORDERED: IV NS 0.9% 1,000 ML BAG IV ONE (05:00)
[2018-05-13 05:08] LABS: CALCIUM, SERUM 8.1 mg/dL (8.5-10.1); POTASSIUM 3.6 mmol/L (3.5-5.1)
[2018-05-13 05:39] LABS: APPEARANCE,URINE CLOUDY (CLEAR); BILIRUBIN,URINE NEGATIVE (NEGATIVE); BLOOD, URINE 3+ Ery/uL (NEGATIVE); COLOR,URINE YELLOW (YELLOW); KETONES,URINE NEGATIVE (NEGATIVE); LEUKOCYTE ESTERASE ,URINE NEGATIVE (NEGATIVE); NITRITE, URINE NEGATIVE (NEGATIVE); PROTEIN,URINE 1+ mg/dl (NEGATIVE); UGLUCOSE NEGATIVE (NEGATIVE); UROBILINOGEN,URINE 0.2 EU/dL (0.2)
[2018-05-13 05:41] LABS: BASOPHILS % (AUTO) 0.6 % (0.0-2.0); EOSINOPHILS % (AUTO) 1.2 % (0.0-6.0); LYMPHOCYTES # (AUTO) 1.8 /CMM (0.8-4.8); LYMPHOCYTES % (AUTO) 24.4 % (20.0-44.0); MEAN CORPUSCULAR HEMOGLOBIN 22 PG (26.0-33.0); MEAN CORPUSCULAR HGB CONC 30 g/dl (31.0-36.0); MEAN CORPUSCULAR VOLUME 71 fL (82-100); MONOCYTES # (AUTO) 0.4 /CMM (0.1-1.30); MONOCYTES % (AUTO) 5.5 % (2.0-12.0); NEUTROPHILS % (AUTO) 68.3 % (43.0-81.0); PLATELET COUNT (AUTO) 398 /CMM (150-450); RDW COEFFICIENT OF VARIATION 20.7 (11.5-15.0); RED BLOOD CELL COUNT(AUTO) 2.02 MIL/uL (4.0-5.2); WHITE BLOOD COUNT (AUTO) 7.4 K/uL (4.3-11.0)
[2018-05-13 05:42] LABS: HEMATOCRIT 14 % (33-45); HEMOGLOBIN 4.4 g/dL (11.5-14.8)
--- NOTE | 2018-05-13 05:50 | NUR ---
pt can go to bed 106
[2018-05-13 05:56] LABS: BACTERIA,URINE Few /HPF (None Seen); RBC,URINE TOO NUMEROUS TO COUN /HPF (0-2); SQUAMOUS EPITHELIAL CELL,UR Few /HPF (None Seen)
[2018-05-13] MEDS ORDERED: MAGNESIUM HYDROXIDE 30 ML UDC PO PRN (06:30)
[2018-05-13] MEDS ORDERED: ONDANSETRON HCL/PF 4 MG/2 ML VIAL IVP PRN (06:30)
[2018-05-13] MEDS ORDERED: HYDROCODONE/APAP 5/325MG 1 EACH TABLET PO PRN (06:30)
[2018-05-13] MEDS ORDERED: Z GUARD REMEDY 2 OZ OINT TP PRN (06:30)
[2018-05-13] MEDS ORDERED: diphenhydrAMINE HCL 25 MG CAPSULE PO PRN (06:30)
[2018-05-13] MEDS ORDERED: HYDROCODONE/APAP 10/325MG 1 EA TABLET PO PRN (06:30)
[2018-05-13] MEDS ORDERED: ZOLPIDEM TARTRATE 5 MG TABLET PO PRN (06:30)
[2018-05-13] MEDS ORDERED: MAG HYDROX/AL HYDROX/SIMETH 30 ML UDC PO PRN (06:30)
--- NOTE | 2018-05-13 06:35 | NUR ---
REPORT GIVEN TO LORIE GRAY FOR BED 106
--- NOTE | 2018-05-13 06:38 | NUR ---
[facility] UNIT PRBC. IN PROGRESS AT THIS TIME.
--- NOTE | 2018-05-13 07:35 | NUR ---
1 UNIT PRBC TRANSFUSING. PT TOLERATING WELL AT THIS TIME. ENDORSE TO LORIE ANDRADE FOR JHOANA. VSS.
--- NOTE | 2018-05-13 08:00 | NUR ---
ONGOING BLOOD TRANSFUSION. PT AAOX4 TOLERATING WELL. VSS. KEPT COMFORTABLE.
--- NOTE | 2018-05-13 08:45 | NUR ---
BUS CLEANER NOTE PATIENT ADMITTED FROM ER WITH C/O ACUTE ANEMIA AT 0830.,AMBULATORY STEADY GATE.AXOX4.ON RA.SATURATING 100%.NO SOB NO DISTRESS NOTED.NO CHEST PAIN.SKIN INTACT.ON TELE MONITOR SR 63.ONGOING BLOOD TRANSFUSION PRBC @120CC/HR.TOLERATING WELL.DOCUMENTATION OF BLOOD TRANSFUSION DONE ON THE PAPER FROM ER.ITS KEPT IN CHART WITH BLOOD TRANSFUSION CONSENT.CALL LIGHT IN REACH,BED IS LOW AND IN LOCKED POSITION,SRX3.WILL CONTINUE TO MONITOR.
[2018-05-13] MEDS ORDERED: MEGESTROL ACETATE SUSP 400 MG/10 ML UDC PO SCH (09:00)
[2018-05-13] MEDS ORDERED: Medication Not On Formulary EA (Biotin 1,000 MCG) PO SCH (09:00)
[2018-05-13 09:29] LABS: BAND % (MANUAL) 3 % (0.0-5.0); EOSINOPHILS % (MANUAL) 3 % (0-4); LYMPHOCYTES % (MANUAL) 27 % (16-48); MONOCYTES % (MANUAL) 5 % (0-11.0); NEUTROPHILS % (MANUAL) 62 (42-76)
[2018-05-13] MEDS: ASCORBIC ACID 500 MG TABLET PO SCH (09:49)
[2018-05-13] MEDS: MULTIVITAMINS,THERAGRAN 1 UDTAB TABLET PO SCH (09:49)
[2018-05-13] MEDS: CYANOCOBALAMIN 500 MCG TABLET PO SCH (09:49)
--- NOTE | 2018-05-13 10:00 | NUR ---
FIRE PROTECTION INSPECTOR NOTES BLOOD TRANSFUSION COMPLETED.PATIENT IS STABLE.NO SOB NO REACTION SYMPTOMS NOTED.VITAL SIGNS STABLE.WILL CONTINUE TO MONITOR.
[2018-05-13] MEDS ORDERED: diphenhydrAMINE HCL 50 MG/ML VIAL IV PRN (11:00)
[2018-05-13 11:16] LABS: BASOPHILS % (AUTO) 0.1 % (0.0-2.0); EOSINOPHILS % (AUTO) 2.7 % (0.0-6.0); LYMPHOCYTES # (AUTO) 1.4 /CMM (0.8-4.8); LYMPHOCYTES % (AUTO) 23.4 % (20.0-44.0); MEAN CORPUSCULAR HEMOGLOBIN 22 PG (26.0-33.0); MEAN CORPUSCULAR HGB CONC 30 g/dl (31.0-36.0); MEAN CORPUSCULAR VOLUME 75 fL (82-100); MONOCYTES # (AUTO) 0.4 /CMM (0.1-1.30); MONOCYTES % (AUTO) 7.4 % (2.0-12.0); NEUTROPHILS # (AUTO) 3.8 /CMM (1.8-8.9); NEUTROPHILS % (AUTO) 66.4 % (43.0-81.0); PLATELET COUNT (AUTO) 376 /CMM (150-450); RDW COEFFICIENT OF VARIATION 22.5 (11.5-15.0); RED BLOOD CELL COUNT(AUTO) 2.36 MIL/uL (4.0-5.2); WHITE BLOOD COUNT (AUTO) 5.8 K/uL (4.3-11.0)
--- NOTE | 2018-05-13 11:30 | NUR ---
AUGER OPERATOR NOTES PATIENT NOTED WITH HIVES ON THE LOWER PART OF THE BODY ON BILATERAL THIGH.KELSIE NEAL MADE AWARE.GOT ORDER FOR PRN MEDICATION.PRN MEDS GIVEN .CHANGED THE BED LINEN .PATIENT SAID SHE IS COMFORTABLE .LESS ITCHING NOTED WILL CONTINUE TO MONITOR.REQUESTED ALLERGIC REACTION WORK UP FOR BLOOD TRANSFUSION TO KELSIE NEAL.HE OLD PATIENT NO NEED ALLERGIC REACTION WORK UP,IF PATIENT STABILIZED AFTER PRN MEDS ,CONTINUE TO MONITOR.PATIENT MADE AWARE.
[2018-05-13 11:31] LABS: HEMOGLOBIN 5.2 g/dL (11.5-14.8)
[2018-05-13 11:32] LABS: HEMATOCRIT 18 % (33-45)
--- NOTE | 2018-05-13 12:15 | NUR ---
FINANCIAL PLANNER NOTES UNATTENDED GROUND SENSOR SPECIALIST ÁNGEL MADE AWARE ABOUT THE CBC RESULT Hgb 5.2.GOT ONE MORE PRBC ORDER TO TRANSFUSE.
[2018-05-13] MEDS ORDERED: ALBUTEROL FS 2.5 MG/3 ML VIAL.NEB NEB PRN (13:30)
--- NOTE | 2018-05-13 15:46 | NUR ---
BRAND MGR NOTES PER KELSIE NEAL "DISCONTINUE LARISSIA AND CHANGE MEGACE FROM 400MG TO 40MG PO DAILY." NOTIFIED ASSIGNED RN.
--- NOTE | 2018-05-13 15:59 | NUR ---
PT GETTING BLOOD TRANSFUSION, WILL DO CT SCAN AROUND 1900, RN IS AWARE.
--- NOTE | 2018-05-13 18:46 | NUR ---
INSPECTION MACHINE TENDER NOTES PER ÁNGEL CATH LAB TO STOP CONTROL PILLS AND TO TAKE MEGACE CHANGED DOSE.PATIENT REFUSE MEGACE AND REFUSED TO STOP CONTROL PILLS.CATH LAB ÁNGEL MADE AWARE.WILL CONTINUE TO MONITOR.
--- NOTE | 2018-05-13 19:26 | NUR ---
LEADED GLASS INSTALLER CLOSING NOTE PATIENT IS AMBULATORY STEADY GATE.AXOX4.ON RA.SATURATING 100%.NO SOB NO DISTRESS NOTED.NO CHEST PAIN.SKIN INTACT.ON TELE MONITOR SR 74.S/P BLOOD TRANSFUSION .TOLERATED WELL.CBC ORDERED FOR 1929.FOR CT ABDOMEN RADIOLOGY MADE AWARE .CALL LIGHT IN REACH,BED IS LOW AND IN LOCKED POSITION,SRX3.ENDORSED TO PM NURSE FOR JHOANA,TO FOLLOW UP WITH LABS AND TRANSFUSE PRBC UNTIL Hgb is 7.
--- NOTE | 2018-05-13 20:00 | NUR ---
PROCESSING CLERK NOTES RECEIVED PTS IN BED A/OX4 RESPONSIVE AND AMBULATORY , V/S STABLE AFEBRILE , NO SOB NO DISTRESS NOTED ,CONTINUE MONITORING FOR VAGINAL BLEEDING .ALL NEEDS ATTENDED TOO CALL LIGHT WITHIN REACH PTS ON LAC AT 20G INTACT AND PATENT .WILL CONTINUE TO MONITOR PTS.
[2018-05-13 20:05] LABS: BASOPHILS % (AUTO) 0.4 % (0.0-2.0); EOSINOPHILS % (AUTO) 2.3 % (0.0-6.0); HEMATOCRIT 21 % (33-45); LYMPHOCYTES # (AUTO) 1.6 /CMM (0.8-4.8); LYMPHOCYTES % (AUTO) 29.9 % (20.0-44.0); MEAN CORPUSCULAR HEMOGLOBIN 23 PG (26.0-33.0); MEAN CORPUSCULAR HGB CONC 31 g/dl (31.0-36.0); MEAN CORPUSCULAR VOLUME 76 fL (82-100); MONOCYTES # (AUTO) 0.4 /CMM (0.1-1.30); MONOCYTES % (AUTO) 8.1 % (2.0-12.0); NEUTROPHILS # (AUTO) 3.1 /CMM (1.8-8.9); NEUTROPHILS % (AUTO) 59.3 % (43.0-81.0); PLATELET COUNT (AUTO) 397 /CMM (150-450); RDW COEFFICIENT OF VARIATION 20.2 (11.5-15.0); RED BLOOD CELL COUNT(AUTO) 2.83 MIL/uL (4.0-5.2); WHITE BLOOD COUNT (AUTO) 5.2 K/uL (4.3-11.0)
[2018-05-13 20:16] LABS: HEMOGLOBIN 6.5 g/dL (11.5-14.8)
--- NOTE | 2018-05-13 20:30 | NUR ---
CLIENT MANAGER LARGE LAW NOTES RECIEVED CRITICAL LAB HGB OF 6.5 RELAYED TO MD WITH ORDER TO TRANSFUSED 1 PRBC , ORDERS NOTED AND CARRIED OUT.
[2018-05-13 20:41] LABS: LYMPHOCYTES % (MANUAL) 28 % (16-48); MONOCYTES % (MANUAL) 10 % (0-11.0); NEUTROPHILS % (MANUAL) 62 (42-76)
--- NOTE | 2018-05-13 21:30 | NUR ---
BATTERY STARTER NOTES BLOOD TRANSFUSION STARTED AT 2130 V/S STABLE AFEBRILE NO ADVERSE SIDE EFFECT OR REACTION NOTED. ALL NEEDS ATTENDED TOO CALL LIGHT WITHIN REACH KEPT PTS CLEAN DRY AND COMFORTABLE.WILL CONTINUE TO MONITOR .
[2018-05-14] VITALS (16 sets, daily range): BP systolic 120–154; BP diastolic 69–98
--- NOTE | 2018-05-14 00:19 | NUR ---
CARPET INSTALLATION SPECIALIST NOTES BLOOD TRANSFUSION COMPLETED AT 0019 ,NO ASE NOTED PTS V/S STABLE AFEBRILE.ALL NEEDS ATTENDED TOO ,WILL CONTINUE TO MONITOR PTS.
[2018-05-14] MEDS: ACETAMINOPHEN 325 MG TABLET PO PRN (01:57)
--- NOTE | 2018-05-14 02:00 | NUR ---
CARPENTER LABOR SUPERVISOR NOTES RECIEVED CRITICAL LABS HGB=6.9 RELAYED TO MD [place] ORDER TO GIVE IPRBC ,BLOOD BANK INFORM ,PER BLOOD BANK PTS HAS ANTI BODIES BLOOD IS ORDERED FROM [facility] THEY WILL CALL WHEN BLOOD IS READY
[2018-05-14 02:14] LABS: HEMOGLOBIN 6.9 g/dL (11.5-14.8)
[2018-05-14 03:50] LABS: BASOPHILS % (AUTO) 0.5 % (0.0-2.0); EOSINOPHILS % (AUTO) 1.6 % (0.0-6.0); HEMATOCRIT 23 % (33-45); LYMPHOCYTES # (AUTO) 1.4 /CMM (0.8-4.8); LYMPHOCYTES % (AUTO) 18.9 % (20.0-44.0); MEAN CORPUSCULAR HEMOGLOBIN 25 PG (26.0-33.0); MEAN CORPUSCULAR HGB CONC 31 g/dl (31.0-36.0); MEAN CORPUSCULAR VOLUME 80 fL (82-100); MONOCYTES # (AUTO) 0.5 /CMM (0.1-1.30); MONOCYTES % (AUTO) 6.9 % (2.0-12.0); NEUTROPHILS # (AUTO) 5.4 /CMM (1.8-8.9); NEUTROPHILS % (AUTO) 72.1 % (43.0-81.0); PLATELET COUNT (AUTO) 349 /CMM (150-450); RDW COEFFICIENT OF VARIATION 22.3 (11.5-15.0); RED BLOOD CELL COUNT(AUTO) 2.85 MIL/uL (4.0-5.2); WHITE BLOOD COUNT (AUTO) 7.5 K/uL (4.3-11.0)
--- NOTE | 2018-05-14 04:12 | NUR ---
SET UP MECHANIC COIL WINDING MACHINES NOTES SPOKE TO [place] BLOOD BANK THERES ANOTHER RESULT FOR HGB IS 7, PER ORDER NO TRANSFUSION NEEDED, WILL HOLD TRANSFUSION FOR NOW WERE VERIFY WITH MD IN AM.
[2018-05-14 04:20] LABS: MAGNESIUM 2.2 mg/dL (1.8-2.4); PHOSPHORUS 3.2 mg/dL (2.5-4.9); POTASSIUM 5.1 mmol/L (3.5-5.1)
--- NOTE | 2018-05-14 04:21 | NUR ---
RN NOTES SPOKE TO RIC FROM BLOOD BANK RE: H/H RESULT DOES NOT HAVE TIME IN THE COMPUTER RESULTS; IT ONLY SAYS UNKNOWN BUT LOOKS LIKE LATEST RESULT IS 6.9; BUT RIC STATED THE LATEST IS 7 AND WAS REPORTED TO LORIE GRAY. REQUESTED TO HAVE IT FIXED BECAUSE THERE'S A CONDITIONAL ORDER FOR BLOOD TRANSFUSION. 9241 LIYA FROM LABORATORY CALLED AND STATED TIME WAS PUT IN ALREADY AND LATEST HGB IS 7
--- NOTE | 2018-05-14 07:20 | NUR ---
FIRE WATCHER OPENING NOTE PATIENT IS AMBULATORY STEADY GATE.AXOX4.ON RA.SATURATING 100%.NO SOB NO DISTRESS NOTED.NO CHEST PAIN.SKIN INTACT.ON TELE MONITOR SR 72.CALL LIGHT IN REACH,BED IS LOW AND IN LOCKED POSITION,SRX3.ASKED TO CONTINUE WITH ANOTHER BLOOD TRANSFUSION.PLACED ORDER BY PM NURSE.
[2018-05-14] MEDS: ASCORBIC ACID 500 MG TABLET PO SCH (08:41)
[2018-05-14] MEDS: CYANOCOBALAMIN 500 MCG TABLET PO SCH (08:41)
[2018-05-14] MEDS: MULTIVITAMINS,THERAGRAN 1 UDTAB TABLET PO SCH (08:41)
[2018-05-14] MEDS ORDERED: ERGOCALCIFEROL (VITAMIN D 2) 50,000 UNIT CAPSULE PO SCH (09:00)
[2018-05-14] MEDS ORDERED: MEGESTROL ACETATE SUSP 400 MG/10 ML UDC PO SCH (09:00)
--- NOTE | 2018-05-14 11:00 | NUR ---
HEELER NOTES SEEN BY KELSIE NEAL UPDATED ABOUT PATIENT CONDITION WITH LABS ,ASKED CONTINUE WITH CURENT BLOOD TRANSFUSION AND CBC AFTER AND TO DO PRBC UNTIL Hgb 8.0.THEN PATIENT CAN BE DISCHARGED AND F/U WITH HER MOLDER SWEEP DOCTOR.
[2018-05-14] MEDS: DOCUSATE SODIUM 100 MG CAPSULE PO SCH ×2 (11:53→17:18)
[2018-05-14 14:49] LABS: BASOPHILS % (AUTO) 0.8 % (0.0-2.0); EOSINOPHILS % (AUTO) 3.4 % (0.0-6.0); HEMATOCRIT 28 % (33-45); HEMOGLOBIN 8.4 g/dL (11.5-14.8); LYMPHOCYTES # (AUTO) 0.9 /CMM (0.8-4.8); LYMPHOCYTES % (AUTO) 16.2 % (20.0-44.0); MEAN CORPUSCULAR HEMOGLOBIN 24 PG (26.0-33.0); MEAN CORPUSCULAR HGB CONC 30 g/dl (31.0-36.0); MEAN CORPUSCULAR VOLUME 79 fL (82-100); MONOCYTES # (AUTO) 0.4 /CMM (0.1-1.30); NEUTROPHILS # (AUTO) 4.1 /CMM (1.8-8.9); NEUTROPHILS % (AUTO) 72.6 % (43.0-81.0); PLATELET COUNT (AUTO) 411 /CMM (150-450); RDW COEFFICIENT OF VARIATION 22.2 (11.5-15.0); RED BLOOD CELL COUNT(AUTO) 3.54 MIL/uL (4.0-5.2); WHITE BLOOD COUNT (AUTO) 5.7 K/uL (4.3-11.0)
--- NOTE | 2018-05-14 15:04 | NUR ---
RN NOTES PATIENT CBC RESULT BACK WITH Hgb OF 8.4.
--- NOTE | 2018-05-14 19:24 | NUR ---
NURSE ADVISOR CLOSING NOTE PATIENT IS AMBULATORY STEADY GATE.AXOX4.ON RA.SATURATING 100%.NO SOB NO DISTRESS NOTED.NO CHEST PAIN.SKIN INTACT.ON TELE MONITOR SR 70.S/P BLOOD TRANSFUSION .TOLERATED WELL .CALL LIGHT IN REACH,BED IS LOW AND IN LOCKED POSITION,SRX3.ENDORSED TO PM NURSE FOR JHOANA,
--- NOTE | 2018-05-14 20:00 | NUR ---
radio television technical director notes received pts in bed awake a/ox4 on tele sr on the monitor ,no sob no distress noted ,v/s stable afebrile , will continue to monitor pts.
[2018-05-15] VITALS (11 sets, daily range): BP systolic 115–150; BP diastolic 61–83
[2018-05-15] MEDS: ACETAMINOPHEN 325 MG TABLET PO PRN (04:29)
--- NOTE | 2018-05-15 05:42 | NUR ---
DEPENDENCY DIRECTOR NOTES PTS IN BED AWAKE A/O X4 ON SR NO SOB NO DISTRESS NOTED,WILL ENDORSE TO RN DAY SHIFT FOR CONTINUITY OF CARE.V/S STABLE AND AFEBRILE.
--- NOTE | 2018-05-15 08:00 | NUR ---
BRASS SORTER NOTES RECEIVED PATIENT IN BED A/OX4 RESPONSIVE AND AMBULATORY , NO SHORTNESS OF BREATH NOTED. NO COMPLAINS OF PAIN. AFEBRILE, ON TELE MONITOR, SINUS RYTHM WITH HR AT 78. SKIN WARM TO TOUCH, G 20 IV LINE ON THE LEFT AC INTACT AND PATENT. ENCOURAGE THE USE OF CALL LIGHT FOR ASSISTANCE, CALL LIGHT WITHIN REACH, WILL CONTINUE TO MONITOR PTS.
[2018-05-15] MEDS: MEGESTROL ACETATE 40 MG TABLET PO SCH ×3 (09:00→09:54)
--- NOTE | 2018-05-15 09:00 | NUR ---
TELE NURSE NOTES PATIENT REFUSED TO TAKE DUE MEGACE AT THIS TIME. TOOK ALL OTHER DUE MEDICATION
[2018-05-15] MEDS: ASCORBIC ACID 500 MG TABLET PO SCH (09:38)
[2018-05-15] MEDS: CYANOCOBALAMIN 500 MCG TABLET PO SCH (09:38)
[2018-05-15] MEDS: MULTIVITAMINS,THERAGRAN 1 UDTAB TABLET PO SCH (09:38)
[2018-05-15] MEDS: DOCUSATE SODIUM 100 MG CAPSULE PO SCH ×2 (09:46→18:01)
--- NOTE | 2018-05-15 12:00 | NUR ---
TELE NURSE NOTES SEEN AND EXAMINED BY ÁNGEL CANALES NP. WITH ORDER FOR 1 PRBC FOR TRANSFUSION AND DOWN GRADE OF ACUITY TO MED/ SURG SERVICES.
--- NOTE | 2018-05-15 14:15 | NUR ---
MED/SHIRT PRESSER NOTES BLOOD TRANSFUSION STARTED, BLOOD VERIFIED WITH LORIE CHOUDHARY. CALL LIGHT LEFT WITHIN REACH AND INFORMED PATIENT TO VERBALIZED AND UNTOWARD SIGN AND SYMPTOMS. PATIENT WILL BE MONITORED AFTER 15 MINUTES.
--- NOTE | 2018-05-15 16:53 | NUR ---
MED/SURG NURSE NOTES BLOOD TRANSFUSION DONE. PATIENT ABLE TO TOLERATE THE PROCEDURE WELL. AFEBRILE AT 98.5. NO COMPLAINS OF SHORTNESS OF BREATH. NO COMPLAINS OF DISCOMFORT OF ANY KIND. WILL CONTINUE TO MONITOR.
--- NOTE | 2018-05-15 19:15 | NUR ---
MED/STUDENT OFFICER NOTES PATIENT IV LINE WAS DISCONTINUED AFTER BLOOD TRANSFUSION DUE TO LEAKAGE.NEW IV LINE TO BE STARTED BUT PATIENT REFUSED. RISK AND BENEFIT MENTIONED BUT PATIENT STILL DECLINED.
--- NOTE | 2018-05-15 19:25 | NUR ---
MED/GAS PUMPING STATION OPERATOR NOTES ENDORSED PATIENT TO INCOMING NIGHT NURSE FOR CONTINUITY OF CARE, NO ACUTE CHANGES WITHIN THE SHIFT. S/P BLOOD TRANSFUSION. PATIENT ALERT AND ORIENTEDX3, NO SHORTNESS OF BREATH, NO COMPLAINS OF DISCOMFORT. CALL LIGHT WITHIN REACH. BED LOCK AND LOW.
[2018-05-16] MEDS: ACETAMINOPHEN 325 MG TABLET PO PRN (00:19)
[2018-05-16 04:00] VITALS: BP 136/69
[2018-05-16 06:18] LABS: BASOPHILS # (AUTO) 0.1 /CMM (0.0-0.2); BASOPHILS % (AUTO) 0.6 % (0.0-2.0); EOSINOPHILS % (AUTO) 2.3 % (0.0-6.0); HEMATOCRIT 33 % (33-45); HEMOGLOBIN 10.4 g/dL (11.5-14.8); LYMPHOCYTES # (AUTO) 1.7 /CMM (0.8-4.8); LYMPHOCYTES % (AUTO) 18.5 % (20.0-44.0); MEAN CORPUSCULAR HEMOGLOBIN 26 PG (26.0-33.0); MEAN CORPUSCULAR HGB CONC 31 g/dl (31.0-36.0); MEAN CORPUSCULAR VOLUME 82 fL (82-100); MONOCYTES # (AUTO) 0.4 /CMM (0.1-1.30); MONOCYTES % (AUTO) 4.7 % (2.0-12.0); NEUTROPHILS # (AUTO) 6.8 /CMM (1.8-8.9); NEUTROPHILS % (AUTO) 73.9 % (43.0-81.0); PLATELET COUNT (AUTO) 428 /CMM (150-450); RDW COEFFICIENT OF VARIATION 22.1 (11.5-15.0); RED BLOOD CELL COUNT(AUTO) 4.05 MIL/uL (4.0-5.2); WHITE BLOOD COUNT (AUTO) 9.1 K/uL (4.3-11.0)
--- NOTE | 2018-05-16 07:27 | NUR ---
RN NOTE RECEIVED PATIENT IN BED AWAKE WATCHING T.V. ALERT AND ORIENTED X4, SHE IS ABLE TO MAKE THINGS KNOWN AND VERBALIZE NEEDS. BREATHING EVEN AND UNLABORED WITH NO DISTRESS NOTED. PATIENT IS AMBULATORY. DENIES ANY PAIN AT THIS TIME. SKIN WARM TO TOUCH AND INTACT. ALL SAFETY MEASURES DONE. BE LOW AND LOCKED POSITION. PLACED CALL LIGHT WITHIN REACH. WILL CONTINUE TO MONITOR.
[2018-05-16 08:00] VITALS: BP 151/82
[2018-05-16 08:03] VITALS: BP 151/82
[2018-05-16] MEDS: MEGESTROL ACETATE 40 MG TABLET PO SCH (08:24)
[2018-05-16] MEDS: ASCORBIC ACID 500 MG TABLET PO SCH (08:28)
[2018-05-16] MEDS: DOCUSATE SODIUM 100 MG CAPSULE PO SCH (08:28)
[2018-05-16] MEDS: CYANOCOBALAMIN 500 MCG TABLET PO SCH (08:28)
[2018-05-16] MEDS: MULTIVITAMINS,THERAGRAN 1 UDTAB TABLET PO SCH (08:28)
[2018-05-16] MEDS ORDERED: MAGNESIUM CITRATE 296 ML BOTTLE PO ONE (08:30)
--- NOTE | 2018-05-16 13:05 | NUR ---
RN NOTE 47 YEAR OLD FEMALE DISCHARGED TO HOME IN STABLE CONDITION. COMPLIANT WITH MEDICATIONS, COOPERATIVE WITH TREATMENT PLANS. MEDICAL TREATMENT PLAN DEFERRED OR CONTINUAL OF MONITORING. EDUCATED PATIENT ABOUT AFTER CARE PLAN AND COPIES PROVIDED. RETURNED PERSONAL BELONGINGS TO PATIENT. MEDICATIONS RECONCILED. PATIENT SIGNED DISCHARGE PAPERWORK. SKIN WARM TO TOUCH AND INTACT. PATIENT LEFT THE UNIT AT 1305 VIA PRIVATE CAR.
== END 2018-05-16 13:10 | disposition home or self-care (01) | DRG 532 ==
LOC: ER 04:23 → TELE1 07:10 → MEDSG1 05-15 12:31
PROVIDERS: ADMIT Family Medicine; ATTEND Family Medicine
PROC: 30233N1 Transfusion of Nonautologous Red Blood Cells into Peripheral Vein, Percutaneous Approach (ICD-10-PCS; principal; 2018-05-13)
DX: N80.0 Endometriosis of uterus (principal); D62 Acute posthemorrhagic anemia; N92.0 Excessive and frequent menstruation with regular cycle; I10 Essential (primary) hypertension; Z86.73 Personal history of transient ischemic attack (TIA), and cerebral infarction without residual deficits; J45.909 Unspecified asthma, uncomplicated; K59.00 Constipation, unspecified; D25.9 Leiomyoma of uterus, unspecified; E61.1 Iron deficiency; R73.9 Hyperglycemia, unspecified
CPT/HCPCS: 36415; 71045-TC; 80048-TC; 80061-TC; 81000-TC; 83735-TC; 84100-TC; 84702-TC; 85025-TC; 85027-TC; 86850-TC; 86921-TC; 87081-TC; A4606; J7030; J7040; J7050; P9016-BL; Q0163; Z7610

== ENCOUNTER 2018-11-23 16:44 | Emergency (ER) | payer OTHER ==
[~2018-11-23] VITALS: Ht 175.3 cm; Wt 89.8 kg
[~2018-11-23 16:44] MED LIST changes: +HYDR-4354 PO; -HYDR-548 PO
[2018-11-23 17:28] VITALS: BP 147/84
== END 2018-11-23 18:22 | disposition home or self-care (01) ==
LOC: ER 16:49
DX: R03.0 Elevated blood-pressure reading, without diagnosis of hypertension (principal); M54.2 Cervicalgia; J45.909 Unspecified asthma, uncomplicated; F32.9 Major depressive disorder, single episode, unspecified; D64.9 Anemia, unspecified; Z98.890 Other specified postprocedural states; Z88.5 Allergy status to narcotic agent; Z91.013 Allergy to seafood; Z60.2 Problems related to living alone; Z79.899 Other long term (current) drug therapy
CPT/HCPCS: 93005; 99283; A4606

== ENCOUNTER 2019-01-28 12:16 | Emergency (ER) | payer OTHER ==
[~2019-01-28] VITALS: Ht 175.3 cm; Wt 88.5 kg
--- NOTE | 2019-01-28 12:22 | NUR ---
BIB RA FROM HOME,C/O RIGHT SIDED NECK PAIN RADIATING TO R EAR AND HEAD X FEW DAYS, ALSO NOTED HER UPPER LIP TO BE SWELLING X 2 HRS. DOES NOT RECALL USING/EATING ANY NEW PRODUCTS THAT CONTRIBUTE TO SWELLING. DENIES SOB, DIZZINESS, N/V. NO ACUTE DISTRESS NOTED. READY FOR EVAL.
[2019-01-28 12:54] LABS: BASOPHILS % (AUTO) 0.5 % (0.0-2.0); HEMATOCRIT 40 % (33-45); HEMOGLOBIN 13.3 g/dL (11.5-14.8); LYMPHOCYTES # (AUTO) 1.1 /CMM (0.8-4.8); MEAN CORPUSCULAR HGB CONC 34 g/dl (31.0-36.0); MEAN CORPUSCULAR VOLUME 89 fL (82-100); MONOCYTES # (AUTO) 0.4 /CMM (0.1-1.30); MONOCYTES % (AUTO) 5.4 % (2.0-12.0); NEUTROPHILS # (AUTO) 5.5 /CMM (1.8-8.9); NEUTROPHILS % (AUTO) 78.1 % (43.0-81.0); PLATELET COUNT (AUTO) 263 /CMM (150-450); RED BLOOD CELL COUNT(AUTO) 4.42 MIL/uL (4.0-5.2)
[2019-01-28 13:07] LABS: ALBUMIN 3.8 g/dL (3.4-5.0); BILIRUBIN,DIRECT 0.1 mg/dL (0.0-0.2); BILIRUBIN,TOTAL 0.4 mg/dL (0.2-1.0); CALCIUM, SERUM 8.9 mg/dL (8.5-10.1); CREATININE 1.2 mg/dL (0.6-1.3); TOTAL PROTEIN, SERUM 7.2 g/dL (6.4-8.2)
[2019-01-28 13:08] LABS: POTASSIUM 2.8 mmol/L (3.5-5.1)
[2019-01-28] MEDS ORDERED: POTASSIUM CHLORIDE 20 MEQ TAB.PRT.SR PO ONE ×2 (13:21→13:30)
[2019-01-28 13:48] LABS: APPEARANCE,URINE CLEAR (CLEAR); BILIRUBIN,URINE NEGATIVE (NEGATIVE); BLOOD, URINE 3+ Ery/uL (NEGATIVE); COLOR,URINE YELLOW (YELLOW); KETONES,URINE 2+ (NEGATIVE); LEUKOCYTE ESTERASE ,URINE 1+ (NEGATIVE); NITRITE, URINE NEGATIVE (NEGATIVE); PH,URINE 5.5 (5.0-8.0); PROTEIN,URINE TRACE mg/dl (NEGATIVE); UGLUCOSE NEGATIVE (NEGATIVE); UROBILINOGEN,URINE 0.2 EU/dL (0.2)
[2019-01-28 13:54] LABS: BACTERIA,URINE Few /HPF (None Seen); SQUAMOUS EPITHELIAL CELL,UR Moderate /HPF (None Seen)
--- NOTE | 2019-01-28 14:18 | NUR ---
Patient is resting comfortably in bed with eyes closed. Easily aroused. VSS
--- NOTE | 2019-01-28 14:25 | NUR ---
Patient discharged to home in stable condition. Written and verbal after care instructions given. Patient verbalizes understanding of instruction.
[2019-01-28 15:42] VITALS: BP 110/78
== END 2019-01-28 14:25 | disposition home or self-care (01) ==
LOC: ER 12:17
DX: T78.3XXA Angioneurotic edema, initial encounter (principal); N39.0 Urinary tract infection, site not specified; E87.6 Hypokalemia; H61.21 Impacted cerumen, right ear; J45.909 Unspecified asthma, uncomplicated; F32.9 Major depressive disorder, single episode, unspecified; D64.9 Anemia, unspecified; Z98.890 Other specified postprocedural states; Z88.5 Allergy status to narcotic agent; Z91.013 Allergy to seafood; Z60.2 Problems related to living alone; Z79.899 Other long term (current) drug therapy
CPT/HCPCS: 36415; 80048-TC; 80076-TC; 81000-TC; 83690-TC; 84703-TC; 85025-TC; 87086-TC

== ENCOUNTER → 2021-10-17 | Emergency (ER) | payer OTHER ==
[~2021-10-17] VITALS: Ht 175.3 cm; Wt 74.8 kg
[~2021-10-17] MED LIST changes: +ASCO-352 PO; -ASCO500T9 PO; -CYAN500T4 PO; +CYAN500T64 PO; +DIPH25CA51 PO; -DIPH25CA6 PO; +IBUP-1953 PO; +POTA20TA83 PO; +POTASSIUM CHLORIDE 20 MEQ TAB.PRT.SR PO ONE
--- NOTE | 2021-10-17 19:57 | NUR ---
patient brought in by self. cc of left ear pain and bilateral back of thigh ain, to bed 2, MD at bedside.
--- NOTE | 2021-10-17 20:00 | NUR ---
demario TOLEDO aware of BP and pain. Addendum: 10/17/21 at 2205 by ANA ROSA Demario TOLEDO educated patient about high BP.
--- NOTE | 2021-10-17 21:10 | NUR ---
patient does not want pain medication at this time. "trying to hold off"
--- NOTE | 2021-10-17 21:19 | NUR ---
ekg at bedside
[2021-10-17 21:44] LABS: BASOPHILS # (AUTO) 0.1 K/uL (0.0-0.2); BASOPHILS % (AUTO) 0.6 % (0.0-2.0); EOSINOPHILS % (AUTO) 1.3 % (0.0-6.0); HEMATOCRIT 41 % (33-45); HEMOGLOBIN 13.9 g/dL (11.5-14.8); LYMPHOCYTES # (AUTO) 1.7 K/uL (0.8-4.8); LYMPHOCYTES % (AUTO) 20.5 % (20.0-44.0); MEAN CORPUSCULAR HGB CONC 34 g/dl (31.0-36.0); MEAN CORPUSCULAR VOLUME 91 fL (82-100); MONOCYTES # (AUTO) 0.5 K/uL (0.1-1.30); MONOCYTES % (AUTO) 5.7 % (2.0-12.0); NEUTROPHILS % (AUTO) 71.9 % (43.0-81.0); PLATELET COUNT (AUTO) 280 K/uL (150-450); RED BLOOD CELL COUNT(AUTO) 4.54 MIL/uL (4.0-5.2); WHITE BLOOD COUNT (AUTO) 8.3 K/uL (4.3-11.0)
[2021-10-17 22:08] LABS: ALBUMIN 3.9 g/dL (3.4-5.0); BILIRUBIN,TOTAL 0.3 mg/dL (0.2-1.0); CALCIUM, SERUM 9.5 mg/dL (8.5-10.1); CREATININE 0.8 mg/dL (0.6-1.3); TOTAL PROTEIN, SERUM 7.8 g/dL (6.4-8.2)
[2021-10-17 22:16] LABS: POTASSIUM 2.7 mmol/L (3.5-5.1)
--- NOTE | 2021-10-17 22:20 | NUR ---
critical lab for k 2.7. Galilea TOLEDO informed.
--- NOTE | 2021-10-17 22:50 | NUR ---
US TECH AT PT'S BEDSIDE
[2021-10-18 00:25] VITALS: BP 160/84
--- NOTE | 2021-10-18 00:26 | NUR ---
Patient discharged to home in stable condition. Written and verbal after care instructions given. Patient verbalizes understanding of instruction. electroic RX sent to perfered pharmacy. patient ambulatory with a steady gait
== END | disposition home or self-care (01) ==
LOC: ER 19:23
DX: E87.6 Hypokalemia (principal); M79.605 Pain in left leg; M79.604 Pain in right leg; H61.23 Impacted cerumen, bilateral; I10 Essential (primary) hypertension; J45.909 Unspecified asthma, uncomplicated; F32.9 Major depressive disorder, single episode, unspecified; D64.9 Anemia, unspecified; Z98.890 Other specified postprocedural states; Z88.5 Allergy status to narcotic agent; Z91.013 Allergy to seafood; Z60.2 Problems related to living alone; Z79.899 Other long term (current) drug therapy
CPT/HCPCS: 36415; 80053-TC; 83880; 85025-TC; 85378-TC; 93970-TC; 93971-TC

== ENCOUNTER 2021-12-20 00:09 | Inpatient (IN) | payer OTHER ==
[~2021-12-20] VITALS: Ht 170.2 cm; Wt 91.6 kg
[~2021-12-20 00:09] MED LIST changes: -POTASSIUM CHLORIDE 20 MEQ TAB.PRT.SR PO ONE
--- NOTE | 2021-12-20 00:59 | NUR ---
IV LINE ESTABLISHED, RAC 18G. BLOOD COLLECTED AND SENT TO LAB
[2021-12-20] MEDS ORDERED: SUMATRIPTAN SUCCINATE 6 MG/0.5 ML VIAL SQ ONE ×2 (01:00→01:02)
[2021-12-20] MEDS ORDERED: METOCLOPRAMIDE HCL 10 MG/2 ML VIAL IV ONE (01:00)
--- NOTE | 2021-12-20 01:00 | NUR ---
PT TAKEN FOR CT SCAN
[2021-12-20] MEDS ORDERED: METOCLOPRAMIDE HCL 10 MG/2 ML VIAL ONE (01:02)
[2021-12-20 01:07] LABS: BASOPHILS % (AUTO) 0.2 % (0.0-2.0); EOSINOPHILS % (AUTO) 1.5 % (0.0-6.0); HEMATOCRIT 39 % (33-45); HEMOGLOBIN 13.2 g/dL (11.5-14.8); LYMPHOCYTES # (AUTO) 0.9 K/uL (0.8-4.8); LYMPHOCYTES % (AUTO) 8.9 % (20.0-44.0); MEAN CORPUSCULAR HGB CONC 34 g/dl (31.0-36.0); MEAN CORPUSCULAR VOLUME 89 fL (82-100); MONOCYTES # (AUTO) 0.5 K/uL (0.1-1.30); MONOCYTES % (AUTO) 5.3 % (2.0-12.0); NEUTROPHILS # (AUTO) 8.7 K/uL (1.8-8.9); NEUTROPHILS % (AUTO) 84.1 % (43.0-81.0); PLATELET COUNT (AUTO) 240 K/uL (150-450); RED BLOOD CELL COUNT(AUTO) 4.42 MIL/uL (4.0-5.2); WHITE BLOOD COUNT (AUTO) 10.4 K/uL (4.3-11.0)
[2021-12-20 01:20] LABS: CALCIUM, SERUM 9.1 mg/dL (8.5-10.1); CARBON DIOXIDE 29 mmol/L (21-32); CHLORIDE 104 mmol/L (98-107); GLUCOSE 165 mg/dL (74-106); POTASSIUM 3.6 mmol/L (3.5-5.1); SODIUM SERUM 140 mmol/L (136-145); UREA NITROGEN, BLOOD 18 mg/dL (7-18)
[2021-12-20 01:25] LABS: ALANINE AMINOTRANSFERASE 27 U/L (12-78); ALBUMIN 3.9 g/dL (3.4-5.0); ALKALINE PHOSPHATASE 88 U/L (46-116); ASPARTATE AMINOTRANSFERASE 18 U/L (15-37); BILIRUBIN,DIRECT 0.1 mg/dL (0.0-0.2); BILIRUBIN,TOTAL 0.5 mg/dL (0.2-1.0); TOTAL PROTEIN, SERUM 7.3 g/dL (6.4-8.2)
[2021-12-20] MEDS ORDERED: ASPIRIN 325 MG TABLET PO ONE (01:30)
[2021-12-20] MEDS ORDERED: ASPIRIN 325 MG TABLET ONE (01:39)
--- NOTE | 2021-12-20 01:47 | NUR ---
COVID ANTIGEN SWAB COLLECTED AND SENT TO LAB
--- NOTE | 2021-12-20 03:29 | NUR ---
Spoke with Kalyn Director [employer] for clinicals
--- NOTE | 2021-12-20 03:51 | NUR ---
Katalina lanier in [facility] - 12/20/21 at [address] isidro
--- NOTE | 2021-12-20 03:52 | NUR ---
dr. isidro on the phone talking to dr. bruno
--- NOTE | 2021-12-20 03:56 | NUR ---
pt will be transferred to [facility]
--- NOTE | 2021-12-20 10:04 | NUR ---
DAFNE [phone] WITH AUTH # [id number]
--- NOTE | 2021-12-20 10:33 | NUR ---
DR. GUSMAN SPEAKING WITH DR. HADDAD.
--- NOTE | 2021-12-20 11:31 | NUR ---
LAB CALLED DELON HADDAD MADE AWARE.
--- NOTE | 2021-12-20 11:32 | NUR ---
RN NOTE TRIED CALLING DR GUSMAN AT OFFICE NUMBER [phone]. WAS DIRECTED TO [facility]. WAS INFORMED BY ASSURANCE SENIOR MANAGER THAT THERE IS NO DOCTOR AVAILABLE TO HELP ME I WAS OUTSIDE THE SERVICE AREA. I CLARIFIED THAT THE DOCTOR ALREADY HAD A PATIENT AT OUR HOSPITAL AND I WAS TRYING TO GET AHOLD OF HIM TO GET ORDERS. THE ASSURANCE SENIOR MANAGER THEN INFORMED ME THAT THERE WAS NOTHING HE COULD DO SINCE I AM OUTSIDE THE SERVICE AREA. CHARGE NURSE MIKAYLA AWARE. Addendum: 12/21/21 at 0052 by FAHAD GRAFF RN [id number] ON 12/20/21
[2021-12-20] MEDS ORDERED: AMLO5TAB4 PO (11:34)
--- NOTE | 2021-12-20 16:18 | NUR ---
BED 309-2 ADMITTING INFORMED.
[2021-12-20] MEDS ORDERED: ALBUTEROL FS 2.5 MG/3 ML VIAL.NEB NEB PRN (17:00)
[2021-12-20] MEDS ORDERED: IOHEXOL-350 100 ML VIAL IV ONE (17:04)
[2021-12-20] MEDS ORDERED: CT SWABBABLE VALVE TRANS SET 1 EA INFUS.SET MC ONE (17:04)
[2021-12-20] MEDS ORDERED: IV NS 0.9% 250 ML IV ONE (17:04)
[2021-12-20 17:06] LABS: BASOPHILS % (AUTO) 0.4 % (0.0-2.0); EOSINOPHILS % (AUTO) 2.4 % (0.0-6.0); HEMATOCRIT 42 % (33-45); HEMOGLOBIN 13.8 g/dL (11.5-14.8); LYMPHOCYTES # (AUTO) 1.7 K/uL (0.8-4.8); LYMPHOCYTES % (AUTO) 30.6 % (20.0-44.0); MEAN CORPUSCULAR HGB CONC 33 g/dl (31.0-36.0); MEAN CORPUSCULAR VOLUME 90 fL (82-100); MONOCYTES # (AUTO) 0.4 K/uL (0.1-1.30); MONOCYTES % (AUTO) 7.3 % (2.0-12.0); NEUTROPHILS # (AUTO) 3.3 K/uL (1.8-8.9); NEUTROPHILS % (AUTO) 59.3 % (43.0-81.0); PLATELET COUNT (AUTO) 257 K/uL (150-450); RED BLOOD CELL COUNT(AUTO) 4.64 MIL/uL (4.0-5.2); WHITE BLOOD COUNT (AUTO) 5.6 K/uL (4.3-11.0)
[2021-12-20] MEDS ORDERED: HYDROCODONE/APAP 5/325MG TABLET PO PRN (17:30)
[2021-12-20] MEDS ORDERED: ZOLPIDEM TARTRATE 5 MG TABLET PO PRN (17:30)
--- NOTE | 2021-12-20 17:30 | NUR ---
TRANSFERRED PT TO 3W ROOM 309-2 PER PROTOCOL. REPORT GIVEN TO JAYLYN MELO FOR JHOANA. VS STABLE. NO SOB DENIES PAIN.
--- NOTE | 2021-12-20 18:00 | NUR ---
TELE/ASSEMBLER DRY CELL AND BATTERY NOTES RECEIVED PATIENT FROM ER VIA [facility]. PATIENT IS ALERT AND ORIENTED X4, ABLE TO MAKE NEEDS KNOWN. AMBULATORY. STABLE ON ROOM AIR. SKIN IS WARM AND INTACT. IV ACCESS ON RIGHT AC #18G IS INTACT AND PATENT ON SALINE LOCK. PATIENT IS IN NO DISTRESS. NO COMPLAINTS OF DISCOMFORTS- NO HEADACHE, NO CHEST PAIN, NO BLURRY VISION AT THIS TIME. TELEMONITOR IN PLACED WITH SR 77 READING. ORIENTED PATIENT TO THE UNIT. EDUCATED PATIENT OF THE DIAGNOSIS. PATIENT ABLE TO VERBALIZED UNDERSTANDING. SAFETY MEASURES IN PLACED: BED LOCKED ON LOWEST POSITION, SIDE RAILS UPX2, HOB ELEVATED, CALL LIGHT AND TABLE WITHIN REACH WILL CONTINUE WITH THE PLAN OF CARE.
[2021-12-20 19:20] LABS: CALCIUM, SERUM 9.3 mg/dL (8.5-10.1); CREATININE 0.8 mg/dL (0.6-1.3); POTASSIUM 3.8 mmol/L (3.5-5.1)
--- NOTE | 2021-12-20 19:30 | NUR ---
COLOR TECHNICIAN OPENING NOTE RECEIVED PATIENT AWAKE IN BED. A/O X4, ABLE TO MAKE NEEDS KNOWN. PT STABLE ON ROOM AIR. NO SOB OR S/S OF RESPIRATORY DISTRESS. IV ACCESS RAC 18 [address], INTACT AND PATENT. ON EXTERNAL SCRAP BURNER READING SR [address] BPM. SAFETY PRECAUTIONS IN PLACE. BED IN LOWEST LOCKED POSITION, HOB ELEVATED, SIDE RAILS UP X2, AND CALL LIGHT AND TABLE WITHIN REACH. ALL NEEDS MET AT THIS TIME.
--- NOTE | 2021-12-20 19:30 | NUR ---
PATIENT IS COMFORTABLE AT THIS TIME. ENDORSED TO THE NEXT SHIFT FOR JHOANA.
[2021-12-20 20:00] VITALS: BP 153/86
[2021-12-20] MEDS: ACETAMINOPHEN 325 MG TABLET PO PRN (20:44)
--- NOTE | 2021-12-20 23:32 | NUR ---
RN NOTE TRIED CALLING DR GUSMAN AT OFFICE NUMBER [phone]. WAS DIRECTED TO [facility]. WAS INFORMED BY HEATING UNIT INSTALLER THAT THERE IS NO DOCTOR AVAILABLE TO HELP ME I WAS OUTSIDE THE SERVICE AREA. I CLARIFIED THAT THE DOCTOR ALREADY HAD A PATIENT AT OUR [facility]OS[facility] AND I WAS TRYING TO GET AHOLD OF HIM TO GET ORDERS. THE HEATING UNIT INSTALLER THEN INFORMED ME THAT THERE WAS NOTHING HE COULD DO SINCE I AM OUTSIDE THE SERVICE AREA. CHARGE NURSE MIKAYLA LEON.
--- NOTE | 2021-12-20 23:55 | NUR ---
PT STATED THAT SHE IS ALLERGIC TO CONTRAST MEDIA...END OF REPORT
[2021-12-20 23:59] VITALS: BP 156/65
--- NOTE | 2021-12-21 00:14 | NUR ---
RN NOTE CHARGE NURSE MIKAYLA ATTEMPTED TO CALL DR GUSMAN AT [phone]. I WAS INFORMED THAT SHE WAS GIVEN THE SAME ANSWER I GOT. WAS UNABLE TO GET CONNECTED TO THE MD. BOTH CALLS WE WERE ON HOLD FOR 30 MINUTES EACH.
--- NOTE | 2021-12-21 00:32 | NUR ---
RN NOTE CALLED DR JERONIMO'S OFFICE AT [phone], SINCE DR GUSMAN IS COVERING FOR DOCTOR JERONIMO. I ASKED FOR DR GUSMAN'S PHONE NUMBER SO THAT I MAY GET ORDERS FOR HIS PATIENT. THEY GAVE ME THE SAME NUMBER OF [phone].
--- NOTE | 2021-12-21 00:39 | NUR ---
RN SHARLA CALLED RN ESCALATOR SERVICE MECHANIC WILLIAM TO UPDATE HER ON THE ISSUE OF NOT BEING ABLE TO GET AHOLD OF DR GUSMAN. SHE TRIED CALLING DR GUSMAN AT THE NUMBER PROVIDED [phone], AND WAS UNABLE TO GET THROUGH. WAS ON HOLD FOR OVER 10 MINUTES WITH NO ANSWER FROM ANSWERING SERVICE. BOTH CHARGE NURSE MIKAYLA AND NURSING ESCALATOR SERVICE MECHANIC WILLIAM AWARE OF THE SITUATION. ADVISED TO WAIT UNTIL DR GUSMAN CALLS THE HOSPITAL TO OBTAIN NEEDED ORDERS.
[2021-12-21 05:00] VITALS: BP 163/105
[2021-12-21 06:19] LABS: BILIRUBIN,URINE NEGATIVE (NEGATIVE); COLOR,URINE YELLOW (YELLOW); LEUKOCYTE ESTERASE ,URINE SMALL (NEGATIVE); NITRITE, URINE NEGATIVE (NEGATIVE); PROTEIN,URINE NEGATIVE (NEGATIVE); UGLUCOSE NEGATIVE (NEGATIVE); UROBILINOGEN,URINE 0.2 EU/dL (0.2)
--- NOTE | 2021-12-21 06:36 | NUR ---
PLASTIC AND RECONSTRUCTIVE SURGEON CLOSING NOTE PATIENT RESTING IN BED EASILY AROUSABLE. A/O X4, ABLE TO MAKE NEEDS KNOWN. PT STABLE ON ROOM AIR. NO SOB OR S/S OF RESPIRATORY DISTRESS. IV ACCESS RAC 18 GAUGE SL, INTACT AND PATENT. ON EXTERNAL TRUCK CHAUFFEUR READING SR 68 BPM. SAFETY PRECAUTIONS IN PLACE AT ALL TIMES. BED IN LOWEST LOCKED POSITION, HOB ELEVATED, SIDE RAILS UP X2, AND CALL LIGHT AND TABLE WITHIN REACH. ALL NEEDS MET AT THIS TIME. WILL ENDORSE TO ONCOMING NURSE FOR JHOANA.
[2021-12-21 06:45] LABS: BACTERIA,URINE None seen /HPF (None Seen); CALCIUM OXALATE CRYSTALS,UR Moderate /HPF (None Seen); RBC,URINE NONE SEEN /HPF (0-2)
[2021-12-21 07:32] LABS: BASOPHILS % (AUTO) 0.5 % (0.0-2.0); EOSINOPHILS % (AUTO) 3.5 % (0.0-6.0); HEMATOCRIT 40 % (33-45); HEMOGLOBIN 13.5 g/dL (11.5-14.8); LYMPHOCYTES # (AUTO) 1.7 K/uL (0.8-4.8); LYMPHOCYTES % (AUTO) 35.2 % (20.0-44.0); MEAN CORPUSCULAR HGB CONC 34 g/dl (31.0-36.0); MEAN CORPUSCULAR VOLUME 89 fL (82-100); MONOCYTES # (AUTO) 0.4 K/uL (0.1-1.30); MONOCYTES % (AUTO) 7.9 % (2.0-12.0); NEUTROPHILS # (AUTO) 2.5 K/uL (1.8-8.9); NEUTROPHILS % (AUTO) 52.9 % (43.0-81.0); PLATELET COUNT (AUTO) 253 K/uL (150-450); RED BLOOD CELL COUNT(AUTO) 4.52 MIL/uL (4.0-5.2); WHITE BLOOD COUNT (AUTO) 4.7 K/uL (4.3-11.0)
--- NOTE | 2021-12-21 07:59 | NUR ---
TELE/RN OPENING NOTES RECEIVED PATIENT IN BED, ALERT AND ORIENTED X4, ABLE TO MAKE NEEDS KNOWN. AMBULATORY. STABLE ON ROOM AIR. SKIN IS WARM AND INTACT. IV ACCESS ON RIGHT AC #18G IS INTACT AND PATENT ON SALINE LOCK. PATIENT IS IN NO DISTRESS. NO COMPLAINTS OF DISCOMFORTS- NO HEADACHE, NO CHEST PAIN, NO BLURRY VISION AT THIS TIME. TELEMONITOR IN PLACED WITH SR 70'S READING. SAFETY MEASURES IN PLACED: BED LOCKED ON LOWEST POSITION, SIDE RAILS UPX2, HOB ELEVATED, CALL LIGHT AND TABLE WITHIN REACH WILL CONTINUE WITH THE PLAN OF CARE.
[2021-12-21 08:35] VITALS: BP 177/96
[2021-12-21 08:39] LABS: CALCIUM, SERUM 9.1 mg/dL (8.5-10.1); CREATININE 0.8 mg/dL (0.6-1.3); POTASSIUM 3.4 mmol/L (3.5-5.1)
[2021-12-21] MEDS ORDERED: LOSARTAN POTASSIUM 50 MG TABLET PO SCH (09:00)
[2021-12-21] MEDS ORDERED: AMLODIPINE BESYLATE 5 MG TABLET PO SCH (09:00)
[2021-12-21] MEDS ORDERED: diphenhydrAMINE HCL 50 MG/ML VIAL IV PRN (09:00)
[2021-12-21] MEDS ORDERED: POTASSIUM CHLORIDE 20 MEQ TAB.PRT.SR PO ONE (09:30)
[2021-12-21] MEDS: ASCORBIC ACID 500 MG TABLET PO SCH (09:57)
[2021-12-21] MEDS: AMLODIPINE BESYLATE 5 MG TABLET PO SCH ×2 (09:58→16:55)
[2021-12-21] MEDS: CYANOCOBALAMIN 500 MCG TABLET PO SCH (09:58)
[2021-12-21] MEDS: ATORVASTATIN 40 MG TABLET PO SCH (10:00)
[2021-12-21] MEDS: ASPIRIN 81 MG TAB.CHEW PO SCH (10:01)
[2021-12-21] MEDS: VALSARTAN 80 MG TABLET PO SCH (10:01)
[2021-12-21] MEDS: ACETAMINOPHEN 325 MG TABLET PO PRN (10:09)
[2021-12-21] MEDS ORDERED: HYDROCODONE/APAP 5/325MG TABLET PO PRN (11:00)
[2021-12-21 11:04] LABS: THYROID STIMULATING HORMONE 0.923 uIU/mL (0.358-3.74)
[2021-12-21] MEDS ORDERED: IOHEXOL-350 100 ML VIAL IV ONE (15:18)
[2021-12-21] MEDS ORDERED: IV NS 0.9% 250 ML IV ONE (15:18)
[2021-12-21] MEDS ORDERED: CT SWABBABLE VALVE TRANS SET 1 EA INFUS.SET MC ONE (15:18)
--- NOTE | 2021-12-21 16:13 | NUR ---
CALLED [facility], WAS ABLE TO SPEAK TO THE SUPERVISOR FUR DRESSING. SHE WILL PAGE DR. GUSMAN REGARDING THE FF: PATIENT'S BLOOD PRESSURE RANGES VERY HIGH- 170/99 TO 180/100 AND PATIENT IS REQUESTING FOR ORDER OF VIT. D 5,000 IU PO DAILY. PER SUPERVISOR FUR DRESSING SHE WILL PAGE DOCTOR TO CALL ME BACK.
[2021-12-21] MEDS ORDERED: hydrALAZINE HCL IV 20 MG VIAL IV PRN (17:00)
[2021-12-21] MEDS ORDERED: CLONIDINE HCL 0.1 MG TABLET PO PRN (17:00)
--- NOTE | 2021-12-21 19:15 | NUR ---
WOODEN BOX MAKER OPENING NOTES RECEIVED PATIENT LAYING AWAKE IN BED. A/O X4. PATIENT WITH REGULAR AND UNLABORED BREATHING ON ROOM AIR, TOLERATED WELL. NO SIGNS AND SYMPTOMS OF DISTRESS NOTED AT THIS TIME. NO COMPLAINS OF PAIN OR DISCOMFORT AT THIS TIME. PATIENT IS ON TELE MONITOR READING SR @ 76 BPM. PATIENT HAS NO IV ACCESS PATIENT REFUSED NEW IV INSERTION EXPLAINED RISKS AND BENEFITS PATIENT STILL REFUSED. SAFETY PRECAUTIONS ENFORCED WITH BED LOCKED AND AT LOWEST POSITION. SIDERAILS UP X2. CALL LIGHT WITHIN REACH AT ALL TIMES. WILL CONTINUE TO MONITOR PATIENT.
[2021-12-21 20:00] VITALS: BP 137/80
[2021-12-22] VITALS: BP 155/74
[2021-12-22 04:00] VITALS: BP 166/84
[2021-12-22 06:01] LABS: BASOPHILS % (AUTO) 0.5 % (0.0-2.0); EOSINOPHILS % (AUTO) 2.9 % (0.0-6.0); HEMATOCRIT 40 % (33-45); HEMOGLOBIN 13.6 g/dL (11.5-14.8); LYMPHOCYTES % (AUTO) 33.8 % (20.0-44.0); MEAN CORPUSCULAR HGB CONC 34 g/dl (31.0-36.0); MEAN CORPUSCULAR VOLUME 89 fL (82-100); MONOCYTES # (AUTO) 0.5 K/uL (0.1-1.30); MONOCYTES % (AUTO) 7.8 % (2.0-12.0); NEUTROPHILS # (AUTO) 3.2 K/uL (1.8-8.9); PLATELET COUNT (AUTO) 251 K/uL (150-450); WHITE BLOOD COUNT (AUTO) 5.9 K/uL (4.3-11.0)
[2021-12-22 06:39] LABS: CALCIUM, SERUM 9.2 mg/dL (8.5-10.1); CREATININE 0.8 mg/dL (0.6-1.3); POTASSIUM 3.6 mmol/L (3.5-5.1)
--- NOTE | 2021-12-22 06:40 | NUR ---
TRAINING DEVELOPMENT MANAGER CLOSING NOTES PATIENT ASLEEP IN BED EASIY AROUSABLE. A/O X4. PATIENT WITH REGULAR AND UNLABORED BREATHING ON ROOM AIR, TOLERATED WELL. NO SIGNS AND SYMPTOMS OF DISTRESS NOTED AT THIS TIME. NO COMPLAINS OF PAIN OR DISCOMFORT AT THIS TIME. PATIENT IS ON TELE MONITOR READING SR @ 66 BPM. PATIENT STILL HAS NO IV ACCESS PATIENT REFUSED NEW IV INSERTION EXPLAINED RISKS AND BENEFITS PATIENT STILL REFUSED. SAFETY PRECAUTIONS ENFORCED WITH BED LOCKED AND AT LOWEST POSITION. SIDERAILS UP X2. CALL LIGHT WITHIN REACH AT ALL TIMES. WILL ENDORSE CONTINUITY OF CARE TO DAY SHIFT NURSE.
--- NOTE | 2021-12-22 07:50 | NUR ---
FINANCIAL ADVOCATE OPENING NOTE RECEIVED PATIENT IN BED AWAKE. ABLE TO MAKE NEEDS KNOWN. ON ROOM AIR; BREATHING EVEN AND UNLABORED, NO SOB OR S/SX OF RESPIRATORY DISTRESS NOTED. TELE MONITOR WITH A CURRENT READING OF SR 71. REPORTS MILD HEADACHE. HAS NO IV ACCESS AND PER NIGHT NURSE SHE WAS REFUSING DESPITE THE RISKS. SAFETY PRECAUTIONS IN PLACE: BED IN LOWEST LOCKED POSITION, SIDE RAILS UP X 2, CALL LIGHT WITHIN REACH. WILL CONTINUE TO MONITOR PATIENT.
[2021-12-22 08:00] VITALS: BP 150/81
[2021-12-22] MEDS: VALSARTAN 80 MG TABLET PO SCH (08:09)
[2021-12-22] MEDS: ATORVASTATIN 40 MG TABLET PO SCH (08:09)
[2021-12-22] MEDS: CYANOCOBALAMIN 500 MCG TABLET PO SCH (08:09)
[2021-12-22] MEDS: ASCORBIC ACID 500 MG TABLET PO SCH (08:10)
[2021-12-22] MEDS: ACETAMINOPHEN 325 MG TABLET PO PRN (08:10)
[2021-12-22] MEDS: ASPIRIN 81 MG TAB.CHEW PO SCH (08:11)
[2021-12-22] MEDS: AMLODIPINE BESYLATE 5 MG TABLET PO SCH ×2 (08:11→17:47)
[2021-12-22] MEDS ORDERED: CHOLECALCIFEROL 1,000 UNIT TABLET (VIT D3) PO SCH (09:00)
[2021-12-22 12:00] VITALS: BP 147/80
[2021-12-22] MEDS: METOPROLOL TARTRATE 50 MG TABLET PO SCH ×2 (12:04→17:47)
[2021-12-22] MEDS ORDERED: NITROGLYCERIN 0.4 MG/TAB BOTTLE ONE (14:13)
[2021-12-22] MEDS ORDERED: IOHEXOL-350 100 ML VIAL IV ONE (14:13)
[2021-12-22] MEDS ORDERED: METOPROLOL TARTRATE INJ 5 MG/5 ML AMPUL ONE ×3 (14:14→14:42)
[2021-12-22] MEDS ORDERED: CT SWABBABLE VALVE TRANS SET 1 EA INFUS.SET MC ONE (14:14)
[2021-12-22] MEDS ORDERED: IV NS 0.9% 250 ML IV ONE (14:14)
[2021-12-22] MEDS ORDERED: NITROGLYCERIN 0.4 MG/TAB BOTTLE SL ONE (14:30)
[2021-12-22] MEDS ORDERED: METOPROLOL TARTRATE INJ 5 MG/5 ML AMPUL IVP ONE (14:30)
[2021-12-22] MEDS: METOPROLOL TARTRATE INJ 5 MG/5 ML AMPUL IVP PRN ×3 (14:50→15:00)
--- NOTE | 2021-12-22 14:52 | NUR ---
FUNERAL LIMOUSINE DRIVER NOTES PATIENT LEFT FOR CTCA. PER MD ORDER PATIENT PREMEDICATED WITH BENADRYL IV
[2021-12-22] MEDS ORDERED: diphenhydrAMINE HCL 50 MG/ML VIAL IV ONE (15:00)
[2021-12-22 16:00] VITALS: BP 145/87
[2021-12-22] MEDS ORDERED: ATOR40TA PO (16:01)
[2021-12-22] MEDS ORDERED: AMLO5TAB4 PO (16:01)
[2021-12-22] MEDS ORDERED: ASPI-1169 PO (16:01)
[2021-12-22] MEDS ORDERED: Valsartan 80MG PO (16:01)
[2021-12-22] MEDS ORDERED: METO100T7 PO (16:01)
[2021-12-22] MEDS ORDERED: HYDR-4076 PO (16:01)
[2021-12-22] MEDS ORDERED: AMLO10TA4 PO (16:08)
[2021-12-22 17:47] VITALS: BP 153/92
--- NOTE | 2021-12-22 18:40 | NUR ---
MS INDIRECT SALES REPRESENTATIVE NOTES PATIENT DISCHARGED HOME IN MEDICALLY STABLE CONDITION. PATIENT A/O X4 ABLE TO MAKE NEEDS KNOWN. ALL DISCHARGE PAPERWORK READY AND PHYSICIAN INSTRUCTIONS PROVIDED TO PATIENT; PATIENT VERBALIZED UNDERSTANDING AND SIGNED PAPERWORK. BELONGINGS ACCOUNTED FOR AND FORM SIGNED WELL. RADIOLOGY C PROVIDED TO PATIENT PER PATIENT REQUEST. IV ACCESS REMOVED PRIOR TO PATIENT LEAVING THE FLOOR. PATIENT LEFT THE UNIT AMBULATORY ACCOMPANIED BY RN AT 1638
== END 2021-12-22 18:40 | disposition home or self-care (01) | DRG 47 ==
LOC: ER 00:12 → TRANSITION 16:03 → TELE 17:12
PROVIDERS: ADMIT Internal Medicine; ATTEND Internal Medicine
DX: G45.9 Transient cerebral ischemic attack, unspecified (principal); F32.A Depression, unspecified; I10 Essential (primary) hypertension; J45.909 Unspecified asthma, uncomplicated; Z82.3 Family history of stroke; Z86.73 Personal history of transient ischemic attack (TIA), and cerebral infarction without residual deficits; R51.9 Headache, unspecified; R73.03 Prediabetes; R77.8 Other specified abnormalities of plasma proteins; R60.9 Edema, unspecified; Z20.822 Contact with and (suspected) exposure to COVID-19; R29.700 NIHSS score 0
CPT/HCPCS: 36415; 70450-TC; 70496-TC; 70498-TC; 70551-TC; 71045-TC; 75574; 80048-TC; 80061-TC; 80076-TC; 81001; 84439-TC; 84443-TC; 84484-TC; 85025-TC; 85730-TC; 87081-TC; 87086-TC; 93307-TC; 93970-TC; C9803; G0378; J1200; J2765; J3030; J3490; J7030; J7050; Q9967

== ENCOUNTER 2023-12-09 15:55 | Emergency (ER) | payer MEDICAID, OTHER ==
[~2023-12-09] VITALS: Ht 175.3 cm; Wt 90.7 kg
[~2023-12-09 15:55] MED LIST changes: +AMLO10TA4 PO; +ASPI-1169 PO; +ATOR40TA PO; -DIPH25CA51 PO; -ERGO500014 PO; +HYDR-4076 PO; -HYDR-4354 PO; -IBUP-1953 PO; -MEGE400O PO; +METO100T7 PO; -MULT-24 PO; -POTA20TA83 PO; +Valsartan 80MG PO
[2023-12-09 16:09] VITALS: BP 170/112; TEMP 98.7
[2023-12-09 17:05] VITALS: O2SAT 99
== END 2023-12-09 17:06 | disposition home or self-care (01) ==
LOC: ER 16:02
DX: H11.31 Conjunctival hemorrhage, right eye (principal); H61.22 Impacted cerumen, left ear; I10 Essential (primary) hypertension; J45.909 Unspecified asthma, uncomplicated; F32.A Depression, unspecified; Z88.5 Allergy status to narcotic agent; Z91.013 Allergy to seafood; Z88.8 Allergy status to other drugs, medicaments and biological substances; Z60.2 Problems related to living alone; Z79.899 Other long term (current) drug therapy

== ENCOUNTER 2024-12-30 01:07 | Inpatient (IN) | payer MEDICAID ==
[~2024-12-30] VITALS: Ht 172.7 cm; Wt 82.2 kg
[2024-12-30] MEDS ORDERED: hydrALAZINE HCL IV 20 MG VIAL ONE (02:36)
[2024-12-30] MEDS: hydrALAZINE HCL IV 20 MG VIAL IV ONE (02:36)
[2024-12-30 02:53] LABS: BASOPHILS # (AUTO) 0.1 K/uL (0.0-0.2); BASOPHILS % (AUTO) 0.8 % (0.0-2.0); EOSINOPHILS # (AUTO) 0.1 K/uL (0.0-0.7); EOSINOPHILS % (AUTO) 1.4 % (0.0-6.0); HEMATOCRIT 43 % (33-45); HEMOGLOBIN 14.2 g/dL (11.5-14.8); LYMPHOCYTES # (AUTO) 2.1 K/uL (0.8-4.8); LYMPHOCYTES % (AUTO) 31.9 % (20.0-44.0); MEAN CORPUSCULAR HEMOGLOBIN 30 PG (26.0-33.0); MEAN CORPUSCULAR HGB CONC 33 g/dl (31.0-36.0); MEAN CORPUSCULAR VOLUME 91 fL (82-100); MONOCYTES # (AUTO) 0.5 K/uL (0.1-1.30); MONOCYTES % (AUTO) 7.1 % (2.0-12.0); NEUTROPHILS # (AUTO) 3.8 K/uL (1.8-8.9); NEUTROPHILS % (AUTO) 58.8 % (43.0-81.0); PLATELET COUNT (AUTO) 273 K/uL (150-450); RED BLOOD CELL COUNT(AUTO) 4.74 MIL/uL (4.0-5.2); RED CELL DISTRIBUTION WIDTH 14.2 % (11.5-15.0); WHITE BLOOD COUNT (AUTO) 6.5 K/uL (4.3-11.0)
[2024-12-30 03:04] LABS: CALCIUM, SERUM 9.6 mg/dL (8.5-10.1); CARBON DIOXIDE 30 mmol/L (21-32); CHLORIDE 102 mmol/L (98-107); CREATININE 0.9 mg/dL (0.6-1.3); GLUCOSE 194 mg/dL (74-106); POTASSIUM 3.2 mmol/L (3.5-5.1); SODIUM SERUM 140 mmol/L (136-145); UREA NITROGEN, BLOOD 18 mg/dL (7-18)
[2024-12-30 03:10] LABS: ALANINE AMINOTRANSFERASE 26 U/L (12-78); ALBUMIN 4.3 g/dL (3.4-5.0); ALKALINE PHOSPHATASE 98 U/L (46-116); ASPARTATE AMINOTRANSFERASE 19 U/L (15-37); BILIRUBIN,DIRECT 0.1 mg/dL (0.0-0.2); BILIRUBIN,TOTAL 0.3 mg/dL (0.2-1.0); TOTAL PROTEIN, SERUM 8.1 g/dL (6.4-8.2)
[2024-12-30 03:11] LABS: APPEARANCE,URINE CLEAR (CLEAR); BILIRUBIN,URINE NEGATIVE (NEGATIVE); BLOOD, URINE NEGATIVE Ery/uL (NEGATIVE); COLOR,URINE YELLOW (YELLOW); KETONES,URINE NEGATIVE (NEGATIVE); LEUKOCYTE ESTERASE ,URINE 1+ (NEGATIVE); NITRITE, URINE NEGATIVE (NEGATIVE); PH,URINE 6.5 (5.0-8.0); PROTEIN,URINE NEGATIVE (NEGATIVE); UGLUCOSE 1+ mg/dL (NEGATIVE); UROBILINOGEN,URINE 0.2 EU/dL (0.2)
[2024-12-30 03:17] LABS: ADD URINE CULTURE YES; BACTERIA,URINE Rare /HPF (None Seen); RBC,URINE 0-2 /HPF (0-2); SQUAMOUS EPITHELIAL CELL,UR Few /HPF (None Seen)
[2024-12-30 03:19] LABS: INR 1.02 (0.91-1.10); PARTIAL THROMBOPLASTIN TIME 29.4 SEC (24.3-34.3); PROTHROMBIN TIME 10.8 SECS (9.2-11.1)
[2024-12-30] MEDS ORDERED: ASPIRIN 325 MG TABLET ONE (03:52)
[2024-12-30] MEDS: ASPIRIN 325 MG TABLET PO ONE (03:52)
[2024-12-30] MEDS ORDERED: MAGNESIUM HYDROXIDE 30 ML UDC PO PRN (04:30)
[2024-12-30] MEDS ORDERED: ONDANSETRON HCL/PF 4 MG/2 ML VIAL IVP PRN (04:30)
[2024-12-30] MEDS ORDERED: Z GUARD REMEDY 4 OZ OINT TP PRN (04:30)
[2024-12-30] MEDS ORDERED: CLONIDINE HCL 0.1 MG TABLET ONE (05:27)
[2024-12-30] MEDS: CLONIDINE HCL 0.1 MG TABLET PO ONE (05:28)
[2024-12-30] MEDS ORDERED: AMLODIPINE BESYLATE 5 MG TABLET PO SCH (09:00)
[2024-12-30] MEDS: LOSARTAN POTASSIUM 25 MG TABLET PO SCH (09:00)
[2024-12-30] MEDS ORDERED: CETI10TA14 PO (09:18)
[2024-12-30] MEDS ORDERED: [UNRECOGNIZED DRUG - CODE] PO (09:18)
[2024-12-30] MEDS ORDERED: MULT-213 PO (09:18)
[2024-12-30] MEDS: hydrALAZINE HCL IV 20 MG VIAL IV PRN (10:29)
[2024-12-30] MEDS: PANTOPRAZOLE 40 MG TABLET.DR PO SCH (10:29)
[2024-12-30] MEDS: POTASSIUM CHLORIDE 20 MEQ TAB.PRT.SR PO SCH (11:47)
[2024-12-30 20:00] VITALS: BP 149/92; TEMP 98.1; O2SAT 100
[2024-12-30] MEDS: ACETAMINOPHEN 325 MG TABLET PO PRN (21:20)
[2024-12-30] MEDS: diphenhydrAMINE HCL 50 MG CAPSULE PO ONE (22:35)
[2024-12-30 22:39] VITALS: BP 149/92; TEMP 98.1; O2SAT 100
[2024-12-31] VITALS: BP 153/79; TEMP 98; O2SAT 99
[2024-12-31] MEDS: HYDROCODONE/APAP 5/325MG TABLET PO ONE (03:26)
[2024-12-31 05:00] VITALS: BP 148/88; TEMP 97.5; O2SAT 99
[2024-12-31 06:32] LABS: BASOPHILS % (AUTO) 0.8 % (0.0-2.0); EOSINOPHILS # (AUTO) 0.1 K/uL (0.0-0.7); EOSINOPHILS % (AUTO) 2.4 % (0.0-6.0); HEMATOCRIT 38 % (33-45); HEMOGLOBIN 12.5 g/dL (11.5-14.8); LYMPHOCYTES # (AUTO) 2.1 K/uL (0.8-4.8); MEAN CORPUSCULAR HEMOGLOBIN 30 PG (26.0-33.0); MEAN CORPUSCULAR HGB CONC 33 g/dl (31.0-36.0); MEAN CORPUSCULAR VOLUME 91 fL (82-100); MONOCYTES # (AUTO) 0.5 K/uL (0.1-1.30); MONOCYTES % (AUTO) 7.7 % (2.0-12.0); NEUTROPHILS # (AUTO) 3.2 K/uL (1.8-8.9); NEUTROPHILS % (AUTO) 54.1 % (43.0-81.0); PLATELET COUNT (AUTO) 250 K/uL (150-450); RED BLOOD CELL COUNT(AUTO) 4.16 MIL/uL (4.0-5.2)
[2024-12-31 07:10] LABS: CALCIUM, SERUM 9.1 mg/dL (8.5-10.1); CREATININE 0.9 mg/dL (0.6-1.3); MAGNESIUM 2.3 mg/dL (1.8-2.4); PHOSPHORUS 3.5 mg/dL (2.5-4.9); POTASSIUM 3.5 mmol/L (3.5-5.1)
[2024-12-31 09:00] VITALS: BP 167/95; TEMP 98.2; O2SAT 97
[2024-12-31] MEDS: ASPIRIN EC 81 MG TABLET.DR PO SCH (09:00)
[2024-12-31] MEDS ORDERED: NAPHAZOLINE HCL/PHENIR MAL 15 ML BOTTLE EACHEYE PRN (10:00)
[2024-12-31] MEDS: FLUTICASONE PROPIONATE 16 GM BOTTLE NS SCH (10:00)
[2024-12-31] MEDS ORDERED: FLUTICASONE PROPIONATE 16 GM BOTTLE NS SCH (10:00)
[2024-12-31] MEDS ORDERED: TEMAZEPAM 15 MG CAPSULE PO PRN (10:00)
[2024-12-31] MEDS: CEPHALEXIN MONOHYDRATE 500 MG CAPSULE PO SCH (10:31)
[2024-12-31] MEDS: ISOSORBIDE DINITRATE (20MG) 20 MG TABLET PO SCH (11:00)
[2024-12-31] MEDS: P-EPHED SUL/LORATADINE (24H) 1 TAB.SR.24H PO SCH (11:53)
[2024-12-31] MEDS: TETRAHYDROZOLINE HCL BOTTLE EACHEYE PRN (11:54)
[2024-12-31] MEDS: hydrALAZINE HCL 50 MG TABLET PO SCH (11:55)
[2024-12-31 13:27] VITALS: BP 161/86; TEMP 98.1; O2SAT 98
[2024-12-31 16:02] VITALS: BP 160/92; TEMP 98.2; O2SAT 97
[2024-12-31 20:00] VITALS: BP 154/92; TEMP 98.8; O2SAT 98
[2025-01-01] VITALS: BP 163/92; TEMP 97.5; O2SAT 98
[2025-01-01 05:00] VITALS: BP 179/98; TEMP 98.8; O2SAT 100
[2025-01-01 07:27] LABS: CALCIUM, SERUM 9.4 mg/dL (8.5-10.1); CREATININE 0.8 mg/dL (0.6-1.3); POTASSIUM 3.3 mmol/L (3.5-5.1)
[2025-01-01 07:30] VITALS: BP 160/101; TEMP 98.1; O2SAT 100
[2025-01-01] MEDS: VALSARTAN 80 MG TABLET PO SCH (08:41)
[2025-01-01] MEDS: hydrALAZINE HCL 50 MG TABLET PO SCH (08:41)
[2025-01-01] MEDS: ATORVASTATIN 10 MG TABLET PO SCH (08:42)
[2025-01-01] MEDS: HYDROCODONE/APAP 5/325MG TABLET PO PRN (08:42)
[2025-01-01] MEDS: POTASSIUM CHLORIDE 20 MEQ TAB.PRT.SR PO SCH (10:12)
[2025-01-01] MEDS ORDERED: ALBUTEROL FS 2.5 MG/3 ML VIAL.NEB NEB PRN (12:00)
[2025-01-01] MEDS ORDERED: CYAN100T44 PO (12:31)
[2025-01-01] MEDS ORDERED: ASCO100058 PO (12:31)
[2025-01-01] MEDS: CHOLECALCIFEROL 1,000 UNIT TABLET (VIT D3) PO SCH (12:45)
[2025-01-01] MEDS: MULTIVITAMINS,THERAGRAN 1 UDTAB TABLET PO SCH (12:45)
[2025-01-01] MEDS: ASCORBIC ACID 500 MG TABLET PO SCH (14:50)
[2025-01-01] MEDS: CYANOCOBALAMIN 100 MCG TABLET PO SCH (14:50)
[2025-01-01 16:05] VITALS: BP 139/93; TEMP 97.9; O2SAT 99
[2025-01-01] MEDS: DOCUSATE SODIUM 100 MG CAPSULE PO SCH (16:23)
[2025-01-01 20:00] VITALS: BP 137/89; TEMP 98.4; O2SAT 100
[2025-01-02] VITALS: BP 155/89; TEMP 98.4; O2SAT 100
[2025-01-02 04:00] VITALS: BP 142/87; TEMP 98.4; O2SAT 100
[2025-01-02 08:00] VITALS: BP 146/87; TEMP 97.5; O2SAT 98
[2025-01-02 08:17] VITALS: BP 146/87; TEMP 97.3; O2SAT 98
[2025-01-02 08:30] LABS: CALCIUM, SERUM 9.4 mg/dL (8.5-10.1); CREATININE 0.8 mg/dL (0.6-1.3)
[2025-01-02] MEDS ORDERED: HYDR25TA4 PO (09:46)
[2025-01-02] MEDS ORDERED: HYDR100T27 PO (09:46)
[2025-01-02] MEDS ORDERED: VALS160T2 PO (09:46)
[2025-01-02] MEDS ORDERED: HYDR-3972 PO (09:47)
[2025-01-02] MEDS ORDERED: TEMA15CA5 PO (09:47)
[2025-01-02] MEDS: HYDROCHLOROTHIAZIDE 25 MG TABLET PO SCH (10:00)
[2025-01-02] MEDS ORDERED: cetrizine 10 MG TABLET PO PRN (10:00)
[2025-01-02] MEDS ORDERED: ALBUTEROL FS 2.5 MG/3 ML VIAL.NEB IH PRN (10:30)
[2025-01-02 12:00] VITALS: BP 133/86; TEMP 98.1; O2SAT 99
== END 2025-01-02 12:30 | disposition home or self-care (01) | DRG 199 ==
LOC: ER 01:10 → TELE 08:57
PROVIDERS: ADMIT Nurse Practitioner Acute Care; ATTEND Nurse Practitioner Acute Care
DX: I16.0 Hypertensive urgency (principal); I21.A1 Myocardial infarction type 2; D64.9 Anemia, unspecified; N39.0 Urinary tract infection, site not specified; Z86.73 Personal history of transient ischemic attack (TIA), and cerebral infarction without residual deficits; I10 Essential (primary) hypertension; J45.909 Unspecified asthma, uncomplicated; R73.03 Prediabetes; Z91.199 Patient's noncompliance with other medical treatment and regimen due to unspecified reason; B96.89 Other specified bacterial agents as the cause of diseases classified elsewhere; H11.32 Conjunctival hemorrhage, left eye
CPT/HCPCS: 36415; 70450-TC; 71045-TC; 80048-TC; 80061-TC; 80076-TC; 81001; 83735-TC; 84100-TC; 84484-TC; 85025-TC; 85730-TC; 87086-TC; 93307-TC; G0378; J0360; Q0163